=== PATIENT | female | born 1980 | race Two or more races ===

== ENCOUNTER 2022-11-01 10:15 | Outpatient (REF) | payer MEDICAID, SELFPAY ==
--- NOTE | 2022-11-01 10:23 | EMG_ITS ---
Please see scanned EMG / Nerve Conduction Report. MTDD
== END 2022-11-01 10:16 | disposition home or self-care (01) ==
LOC: HO.NEURO 10:15
PROVIDERS: PCP Registered Nurse; Visit Provider Registered Nurse
DX: R20.2 Paresthesia of skin (principal)
CPT/HCPCS: 95885; 95913

== ENCOUNTER 2023-03-19 12:13 | Outpatient (REF) | payer MEDICAID, SELFPAY ==
[2023-03-19 13:30] LABS: MANUAL DIFF FLAG NO
[2023-03-19 13:45] LABS: Appearance Urine Clear; Color Urine Yellow; Glucose Urine UA Negative (Negative); Leukocyte Esterase Urine Negative (Negative); Nitrite Urine Negative (Negative); PH 7.5 (5.0-9.0); Urine Blood Negative (Negative); Urine Ketones Negative (Negative); Urine Protein Negative (Neg-Trace)
[2023-03-19 13:50] LABS: Bacteria Urine None Seen (None Seen); Hyaline Casts Urine 0-2 /LPF (0-2); RBC Urine 0-2 /HPF (0-2); Squamous Epithelial Cell Urine 0-2 /HPF (0-2); WBC Urine 0-5 /HPF (0-5)
[2023-03-19 13:53] LABS: Basophils Percent Auto 0.4 % (0-2); Eosinophils Absolute Auto 0.1 X10*3/uL (0.0-0.4); Eosinophils Percent Auto 1.3 % (0-4); Hematocrit 45.3 % (37.0-47.0); Hemoglobin 14.6 g/dl (12.0-16.0); Imm Gran Abs Auto 0.01 X10*3/uL (0.00-0.03); Imm Gran Pct Auto 0.2 % (0.0-0.4); Lymphocytes Absolute Auto 1.9 X10*3/uL (1.2-4.9); Lymphocytes Percent Auto 33.4 % (20-40); Mean Corpuscular HGB Conc 32.2 g/dl (31.0-35.0); Mean Corpuscular Hemoglobin 29.7 pg (27.0-33.0); Mean Corpuscular Volume 92.3 fL (80.0-98.0); Mean Platelet Volume 9.8 fL (9.4-12.3); Monocytes Absolute Auto 0.5 X10*3/uL (0.1-1.2); Monocytes Percent Auto 8.1 % (2-11); Neutrophils Absolute Auto 3.1 x10*3/uL (2.0-8.3); Neutrophils Percent Auto 56.6 % (45-73); Platelet Count 220 X10*3/uL (160-400); Red Blood Count 4.91 X10*6/uL (4.20-5.50); White Blood Count 5.5 X10*3/uL (4.8-10.8)
[2023-03-19 14:50] LABS: Alanine Aminotransferase 19 U/L (0-31); Albumin Level 4.2 g/dL (3.5-5.0); Alkaline Phosphatase 42 U/L (39-117); Anion Gap 13 (12-20); Aspartate Amino Transferase 15 U/L (5-31); Bilirubin Total 0.4 mg/dL (0.0-1.0); Blood Urea Nitrogen 13 mg/dL (9-16); Calcium 9.4 mg/dL (8.4-10.2); Carbon Dioxide 26 mmol/L (22-29); Chloride 106 mmol/L (96-108); Estimated Glomerular Filt Rate > 60; Glucose Random 75 mg/dL (60-115); Potassium 4.5 mmol/L (3.3-5.1); Sodium 140 mmol/L (135-145); Total Protein 7.5 g/dL (6.5-8.0)
[2023-03-21 23:53] LABS: TS Negative Control Passed; TS Panel A 0; TS Panel B 0; TS Positive Control Passed; TSpotTB Negative (Negative)
[2023-03-23 16:08] LABS: Aldosterone/Renin Ratio 77.8 Ratio (0.9-28.9); Plasma Renin Activity 0.09 ng/mL/h (0.25-5.82)
== END 2023-03-19 12:14 | disposition home or self-care (01) ==
LOC: HO.HHCL 12:13
PROVIDERS: Visit Provider Registered Nurse
DX: Z00.00 Encounter for general adult medical examination without abnormal findings (principal); I15.9 Secondary hypertension, unspecified
CPT/HCPCS: 36415; 80053; 81001; 82088; 85025; 86481

== ENCOUNTER 2023-04-25 09:23 | Outpatient (REF) | payer MEDICAID, SELFPAY ==
[2023-05-02 16:28] LABS: Aldosterone/Renin Ratio 83.3 Ratio (0.9-28.9); Plasma Renin Activity 0.06 ng/mL/h (0.25-5.82)
== END 2023-04-25 09:24 | disposition home or self-care (01) ==
LOC: HO.HHCL 09:23
PROVIDERS: Visit Provider Registered Nurse
DX: I10 Essential (primary) hypertension (principal)
CPT/HCPCS: 36415; 82088

== ENCOUNTER 2024-09-03 11:46 | Outpatient (REF) | payer MEDICAID, SELFPAY ==
[2024-09-03 14:21] LABS: Appearance Urine Clear; Color Urine Yellow; Glucose Urine UA Negative (Negative); Leukocyte Esterase Urine Negative (Negative); Nitrite Urine Negative (Negative); PH 6.5 (5.0-9.0); Urine Blood Negative (Negative); Urine Ketones Negative (Negative); Urine Protein Negative (Neg-Trace)
[2024-09-03 14:24] LABS: Bacteria Urine 1+ (None Seen); Hyaline Casts Urine 0-2 /LPF (0-2); RBC Urine 0-2 /HPF (0-2); WBC Urine 0-5 /HPF (0-5)
[2024-09-03 14:40] LABS: Alanine Aminotransferase 27 U/L (0-31); Albumin Level 4.5 g/dL (3.5-5.0); Alkaline Phosphatase 45 U/L (39-117); Anion Gap 9 (12-20); Aspartate Amino Transferase 24 U/L (5-31); Bilirubin Total 0.8 mg/dL (0.0-1.0); Blood Urea Nitrogen 13 mg/dL (9-16); Calcium 8.9 mg/dL (8.4-10.2); Carbon Dioxide 25 mmol/L (22-29); Chloride 110 mmol/L (96-108); Cholesterol 157 mg/dL (<200); Estimated Glomerular Filt Rate > 60; Glucose Random 86 mg/dL (60-115); HDL Cholesterol 52 mg/dL (>40); LDL Cholesterol Calculated 97 mg/dL (<100); Potassium 3.8 mmol/L (3.3-5.1); Sodium 140 mmol/L (135-145); Total Protein 7.7 g/dL (6.5-8.0); Triglycerides 43 mg/dL (<150)
[2024-09-04 04:17] LABS: Syphilis Screen Nonreactive (Nonreactive)
[2024-09-04 04:19] LABS: HIV AB/AG Nonreactive (Nonreactive); HIV Num 1 0.06 S/CO (0.00-0.99)
[2024-09-06 15:49] LABS: TS Negative Control Passed; TS Panel A 0; TS Panel B 0; TS Positive Control Passed; TSpotTB Negative (Negative)
== END 2024-09-03 11:47 | disposition home or self-care (01) ==
LOC: HO.CHCLDS 11:46
PROVIDERS: Visit Provider Registered Nurse
DX: Z00.00 Encounter for general adult medical examination without abnormal findings (principal); I10 Essential (primary) hypertension
CPT/HCPCS: 36415; 80053; 80061; 81001; 86481; 86780; 87389

== ENCOUNTER 2024-09-11 17:26 | Outpatient (REF) | payer MEDICAID, SELFPAY ==
[2024-09-12 14:40] LABS: CT PCR NOT DETECTED (Not Detect.); NG PCR NOT DETECTED (Not Detect.)
== END 2024-09-11 17:27 | disposition home or self-care (01) ==
LOC: HO.HHCLNP 17:26
PROVIDERS: Visit Provider Advanced Practice Midwife
DX: Z11.3 Encounter for screening for infections with a predominantly sexual mode of transmission (principal)
CPT/HCPCS: 87491; 87591

== ENCOUNTER 2024-09-12 16:18 | Outpatient (REF) | payer MEDICAID, SELFPAY ==
--- OUTSIDE RECORDS SUMMARY | 2024-09-12 16:43 | XMS_ITS | Encounter Summary ---
Author Organization [email or web address] Address [address] [facility] [address] [place] [address] Care Team Providers Care Patcher Wood Welder Name Role Phone Nadine Philip ANGEL Primary Care Provider [phone] Reason for Referral * Imaging (Routine) - Authorized Specialty Diagnoses / Procedures Referred By Mohan villarreal Referred To Contact Radiology Diagnoses Encounter for screening mammogram for breast cancer Procedures BI Mammogram Screening Tomosynthesis Bilateral Eliana Mejias FNP [address] [place] [address] Phone: tel: fax: [address] Phone: tel: fax: Referral ID Status Reason Start Date Expiration Date V isits Requested Visits Authorized [id number] Authorized 09/03/2024 09/03/2025 1 1 * Consultation (Urgent) - Authorized Specialty Diagnoses / Procedures Referred By Mohan villarreal Referred To Contact Dentist / Dentistry Diagnoses Poor dentition requiring referral to dentistry Eliana Mejias FNP [address] [place] [address] Phone: tel: fax: [facility] [address] [place] [address] Phone: tel: fax: Referral ID Status Reason Start Date Expiration Date Visits Requested Visits Authorized [id number] Authorized Consult and Treat 09/03/2024 09/03/2025 1 1 * Consultation (Routine) - Authorized Specialty Diagnoses / Procedures Referred By Contac t Referred To Contact Optometry Diagnoses Essential hypertension Eye exam, routine Eliana Mejias FNP [address] [place] [address] Phone: tel: fax: [facility] [address] [place] [address] Phone: tel:[phone] fax: Referral ID Status Reason Start Date Expiration Date Visits Requested Visits Authorized [id number] Authorized Specialty Services Required 09/05/2024 09/05/2025 6 6 Encounter Details Date Type Department Care Team (Late st Contact Info) Description 09/03/2024 10:00 AM EST Office Visit [facility] [address] [place] [address] Eliana Mejias FNP [address] [place] [address] Encounter for adult wellness visit (Primary Dx); Essential hypertension; 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); Poor dentition requiring referral to dentistry; Eye exam, routine; Encounter for immunization; Encounter for screening mammogram for breast cancer Social History Tobacco Use Types Packs/Day Years Used Date Smoking Tobacco: Former Cigarettes Q uit: 1997 Passive Smoke Exposure: Never Smokeless Tobacco: Never Alcohol Use Standard Drinks/Week Comments Not Currently 0 (1 standard drink = 0.6 oz pur e alcohol) Depression Answer Date Recorded Patient Health Questionnaire-9 Score 0 09/03/2024 Patient Health Questionnaire-9 Score 0 09/03/2024 Last PHQ-9: Questionnaire Data Not on file 0 09/03/2024 Housing Stability Answer Date Recorded What is your housing situation today? I have allyson cabrera 09/03/[address] you li ve. Do you have problems with any of the following? None of the above 09/03/2024 Food Insecurity Answer Date Recorded Within the past 12 months, y ou worried that your food would run out before you got money to buy more: Never True 09/03/2024 Within the past 12 months,th e food you bought just didn't last and you didn't have enough money to get more: Never True Transportation Answer Date Recorded In the past 12 months, has l ack of transportation kept you from medical appts, meetings, work or from getting things needed for daily living? No 09/03/2024 Utilities Answer Date Recorded In the past 12 months, has t he electric, gas, oil or water company threatened to shut off services in your home? No 09/03/2024 Depression Answer Date Recorded Patient Health Questionnaire-2 Score 0 09/03/2024 Internet Access Answer Date Recorded Internet Access Q1 Yes 09/03/2024 Internet Access Q2 Not on file 09/03/2024 Comments No Sex and Gender Information Value Date Recorded Sex Assigned at Female 06/19/2022 10:40 AM EDT Legal Sex Female 10:40 AM EDT Gender Identity Female 06/19/2022 10:40 AM EDT Sexual Orientation Choose not to disclose 2021 10:40 AM EDT documented as of this encounter Last Filed Vital Signs Vital Sign Reading Time Taken Comments Blood Pressure 180/110 09/03/2024 10:51 AM EST Pulse 88 09/03/2024 10:11 AM EST Temperature 37.1 ??C (98.8 ??F) 09/03/2024 10:[address] Respiratory Rate 20 09/03/2024 10:11 AM EST Oxygen Saturation 98% 09/03/2024 10:11 AM EST Inhaled Oxygen Concentration - - Weight 67.3 kg (148 lb 6.4 oz) 09/03/2024 10:11 AM EST Height 157.5 cm (5' 2 ) 09/03/2024 10:11 AM EST Body Mass Index 27.14 09/03/2024 10:11 AM EST documented in this encounter Progress Notes * [facility], [facility] - 09/03/2024 10:00 AM EST SUBJECTIVE: Adrianna Agrawal is a 43 y.o. year old female who presents for routine physical exam. Denies recent illness, injury, or hospitalization. Acute Concerns: Dental care-referral; eye care referral Interim Updates: HTN-previously rx'd olmesartan. Not taking any medication. Hx of preeclampsia/gestational HTN. Significant family hx of heart disease-Dad with ID age 48. Has BP kit at home; not checking. 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 No family history on file. Review of Systems Constitutional: Negative for chills, fatigue, fever and unexpected weight change. HENT: Negative for dental problem, ear pain, hearing loss and sore throat. Eyes: Negative for pain and visual disturbance. Respiratory: Negative for cough and shortness of breath. Cardiovascular: Negative for chest pain. Gastrointestinal: Negative. Negative for abdominal pain and blood in stool. Endocrine: Negative. Genitourinary: Negative. Negative for dysuria. Musculoskeletal: Negative. Skin: Negative. Allergic/Immunologic: Negative for immunocompromised state. Neurological: Negative for dizziness, weakness and headaches. Psychiatric/Behavioral: Negative. OBJECTIVE: Vitals: 09/03/24 1011 09/03/24 1051 BP: (!) 190/120 (!) 180/110 BP Location: Right arm Patient Position: Sitting BP Cuff Size: Large adult Pulse: 88 Resp: 20 Temp: 98.8 ??F (37.1 ??C) TempSrc: Oral SpO2: 98% Weight: 148 lb 6.4 oz (67.3 kg) Height: 5' 2 (1.575 m) Physical Exam Constitutional: General: She is not in acute distress. Appearance: Normal appearance. HENT: Head: Normocephalic and atraumatic. Right Ear: Tympanic membrane, ear canal and external ear normal. Left Ear: Tympanic membrane, ear canal and external ear normal. Nose: Nose normal. Mouth/Throat: Mouth: Mucous membranes are moist. Eyes: Extraocular Movements: Extraocular movements intact. Conjunctiva/sclera: Conjunctivae normal. Pupils: Pupils are equal, round, and reactive to light. Cardiovascular: Rate and Rhythm: Normal rate and regular rhythm. Heart sounds: Normal heart sounds. Pulmonary: Effort: Pulmonary effort is normal. Breath sounds: Normal breath sounds. Abdominal: Palpations: Abdomen is soft. Musculoskeletal: General: Normal range of motion. Cervical back: Normal range of motion. Skin: General: Skin is warm and dry. Neurological: General: No focal deficit present. Mental Status: She is alert and oriented to person, place, and time. Psychiatric: Mood and Affect: Mood normal. Behavior: Behavior normal. ASSESSMENT/PLAN Significant BP elevation in office. Pt asx with normal sinus rhythm on EKG. Reports long hx of similarly elevated readings. START amlodipine 5mg once daily-->increase to 10mg if BP remains >140/90. Pt instructed to take amlodipine immediately and recheck home BP within 1 hour. Strict ED precautions were advised Start daily home BP monitoring 2 week follow up RN BP check Patient verbalizes understanding and agrees to plan Routine Health Maintenance - Cardiopulmonary exam WNL - Encouraged regular aerobic exercise with initial goal of 30 minute walk 3x/week gradually increasing to 150 min/week of moderate intensity exercise - Encouraged balanced diet with a variety of fruits, vegetables, and lean meats. Recommended to decrease soda and sugary beverage consumption. Optometry: Overdue for routine eye exam-->referral place Dental: Overdue-->concern for tooth infection. STAT dental referral placed Adult IZ: Covid: Accepts Influenza: Accepts Immunization History Administered Date(s) Administered Influenza Injectable Quadrivalant Preservative Free IIV4 MDCK 08/17/2017 Influenza injectable quadrivalent preservative free 06/30/2022 Influenza, IIV3, injectable 06/13/2021 PPD Test 08/17/2016, 08/15/2017, 04/08/2019 Pfizer Covid-19 Vaccine 12+ Bivalent 03/19/2023 Tdap 07/04/2021 Mental health screening with validated assessment tool : Negative Screenings Breast cancer screening: No prior mammogram; neg family hx. Mammogram ordered Cervical cancer screenin UTD NIL HPV neg w/ CNM Daron Colorectal cancer screening: Routine age 45neg family hx Bone mineral density: Routine age 65. Lung CA: N/A Reproductive LMP: Amenorrheic d/t IUD Current control: Satisfied with method Desires within 12 months: No Menopause: Denies vaginal bleeding/spotting Accepts routine STI screening 1. Encounter for adult wellness visit (Primary) - T-SPOT??.TB; Future - HIV-1/2 Antigen and Antibodies, Fourth Generation, with Reflexes; Future - T-SPOT??.TB - HIV-1/2 Antigen and Antibodies, Fourth Generation, with Reflexes - Syphilis Screen; Future - Syphilis Screen 2. Essential hypertension - amLODIPine (Norvasc) 5 MG tablet; Take 1 tablet (5 mg) by mouth Once per day. If tolerating well and BP remains >140/90 INCREASE to 2 tablets (10mg) daily Dispense: 30 tablet; Refill: 11 - Comprehensive Metabolic Panel; Future - Urinalysis Complete; Future - Aldosterone/Plasma Renin Activity Ratio, LC/MS/MS; Future - Lipid Panel, Standard; Future - Comprehensive Metabolic Panel - Urinalysis Complete - Aldosterone/Plasma Renin Activity Ratio, LC/MS/MS - Lipid Panel, Standard - Referral to Optometry; Future - Referral to Optometry - ECG 12 lead 3. 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 Aldosterone WNL; suppressed renin activity. Unknown if patient was taking any hypertensive medications at time of prior blood work which could have suppressed renin and falsely elevated ratio. Normal aldosterone concentration lowers clinical suspicion for true hyperaldosteronism. Will repeat morning bloodwork and follow up pending results. Aldosterone Date Value Ref Range Status 04/25/2023 5 see note ng/dL Final Comment: Unable to flag abnormal result(s), please refer to reference range(s) below:Adult Reference Ranges for Aldosterone, LC/MS/MS: Upright 8:00 - 10:00 am < or = 28 ng/dL Upright 4:00 - 6:00 pm < or= 21 ng/dL Supine 8:00 - 10:00 am 3 - 16 ng/dLTHIS TEST WAS PERFORMED AT:[facility]/[id number] [place] [address]HMZFEHZNOE BREWER MD,PHD 03/19/2023 7 see note ng/dL Final Comment: Unable to flag abnormal result(s), please refer to reference range(s) below:Adult Reference Ranges for Aldosterone, LC/MS/MS: Upright 8:00 - 10:00 am < or = 28 ng/dL Upright 4:00 - 6:00 pm < or = 21 ng/dL Supine 8:00 - 10:00 am 3 - 16 ng/dLTHIS TEST WAS PERFORMED AT:[facility]/[id number] [place] [address]NEGKWEZNOE BREWER MD,PHD Plasma Renin Activity Date Value Ref Range Status 04/25/2023 0.06 (A) 0.25 - 5.82 ng/mL/h Final 03/19/2023 0.09 (A) 0.25 - 5.82 ng/mL/h Final Aldosterone/Renin Ratio Date Value Ref Range Status 04/25/2023 83.3 (A) 0.9 - 28.9 Ratio Final Comment: This test was developed and its analytical performancecharacteristics have been determined by [place]. It hasnot been cleared or approved by the [place] Food andDrugAdministration. This assay has been validated pursuantto the CLIA regulations and is used for clinicalpurposes.THIS TEST WAS PERFORMED AT:[facility]/[id number] [place] [address]SZUXNXDNOE BREWER MD,PHD 03/19/2023 77.8 (A) 0.9 - 28.9 Ratio Final Comment: This test was developed and its analytical performancecharacteristics have been determined by [facility] [place]. It hasnot been cleared or approved by the U.[place]. Food andDrugAdministration. This assay has been validated pursuantto the CLIA regulations and is used for clinicalpurposes.THIS TEST WAS PERFORMED AT:[id number] [place] [address]ZXILGYINOE BREWER MD,PHD 4. Poor dentition requiring referral to dentistry - Referral to [facility] Dental; Future 5. Eye exam, routine - Referral to Optometry; Future - Referral to Optometry 6. Encounter for immunization - FLU VACCINE TRIVALENT (Fluarix) 6 mo + - COVID-19 VACCINE (Pfizer) [id number] 12 yrs + 7. Encounter for screening mammogram for breast cancer - BI Mammogram Screening Tomosynthesis Bilateral; Future - BI Mammogram Screening Tomosynthesis Bilateral Follow Up: 2 BP check 2 weeks; 1 month with PCP ADDENDUM: I attempted to call patient at 5pm to confirm that she took amlodipine and that her BP responded appropriately. No answer. LVM requesting call back. Current Outpatient Medications on File Prior to Visit Medication Sig Dispense Refill acetaminophen (Tylenol) 325 MG tablet Take 650 mg by mouth. albuterol 108 (90 Base) MCG/ACT inhaler Inhale 2 puffs every 6 (six) hours if needed for wheezing. 18 g 1 Blood Pressure kit Use to check BP daily and when symptomatic 1 kit 0 cholecalciferol (Vitamin D-3) 10 MCG (400 UNIT) tablet Take 2 tablets by oral route every day Echinacea 125 MG tablet as needed guaiFENesin (Mucinex) 600 MG 12 hr tablet Take 1 tablet (600 mg) by mouth 2 times daily. Do not crush, chew, or split. 60 tablet 1 ibuprofen 800 MG tablet Take 800 mg by mouth. Multiple Vitamin (Multi-Vitamin) tablet take 1 tablet by oral route every day with food olmesartan (BENIcar) 20 MG tablet Take 1 tablet (20 mg) by mouth Once daily. 90 tablet 1 No current facility-administered medications on file prior to visit. S documented in this encounter Plan of Treatment Scheduled Orders Name Type Priority Associated Diagnoses Orde r Schedule Aldosterone/Plasma Renin Activity Ratio, LC/MS/MS Lab Routine Essential hypertension Expected: 09/04/2024, Expires: 09/03/2025 BI Mammogram Screening Tomosynthesis Bilateral Imaging Routine Encounter for screening mammogram for breast cancer Expected: 09/03/2024, Expires: 11/01/2025 Scheduled Referrals Name Type Priority Associated Diagnoses Orde r Schedule Referral to Optometry Outpatient Referral Routine Essential hypertension Eye exam, routine Expected: 09/03/2024 (Approximate), Expires: 09/03/2025 Referral to [facility] Dental Outpatient Referral Urgent Poor dentition requiring referral to dentistry Expected: 09/03/2024 (Approximate), Expires: 09/03/2025 documented as of this encounter Procedures Procedure Name Priority Date/Time Associated Diagnosis Comments ECG 12-LEAD Routine 09/03/2024 5:09 PM EST Essential hypertension URINALYSIS, COMPLETE Routine 09/03/2024 11:50 AM EST Essential hypertension SYPHILIS SCREEN Routine 09/03/2024 11:48 AM EST Encounter for adult wellness visit T-SPOT(R).TB Routine 09/03/2024 11:48 AM EST Encounter for adult wellness visit HIV 1/2 ANTIGEN/ANTIBODY, FOURTH GENERATION W/RFL Routine 09/03/2024 11:48 AM EST Encounter for adult wellness visit LIPID PANEL, STANDARD Routine 09/03/2024 11:48 AM EST Essential hypertension COMPREHENSIVE METABOLIC PANEL Routine 09/03/2024 11:48 AM EST Essential hypertension documented in this encounter Results * ECG 12 lead (09/03/2024 5:09 PM EST) [facility] ElianaANGEL - 09/03/2024 5:09 PM EST NSR. See scanned report [facility] ECG ORDERABLES Final Result * Urinalysis Complete (09/03/2024 11:50 AM EST) Color Urine Yellow [facility] Appearance Urine Clear [facility] PH 6.5 5.0 - 9.0 [facility] Glucose Urine UA Negative Negative mg/dL [facility] Urine Blood Negative Negative [facility] Specific [place] - Urine 1.020 1.005 - 1.025 [facility] Urine Protein Negative Neg-Trace mg/dL [facility] Urine Ketones Negative Negative mg/dL [facility] Nitrite Urine Negative Negative [facility] Leukocyte Esterase Urine Negative Negative [facility] RBC Urine 0-2 0 - 2 /HPF [facility] Urine WBC 0-5 0 - 5 /HPF [facility] Urine Squamous Epithelial Cell 6-10 0 - 2 /HPF [facility] Urine Bacteria 1+ None Seen [facility] Hyaline Casts, Urine 0-2 0 - 2 /LPF [facility] Urine (Urine, Random) 09/03/2024 11:50 AM EST 09/03/2024 2:15 PM EST [facility] LAB URINE ORDERABLES Final Re sult Performing Organization Address [facility]/ZIP Co de Phone Number [facility] [address] [place] [address] [phone] * Syphilis Screen (09/03/2024 11:48 AM EST) Syphilis Screen Nonreactive Nonreactive [facility] Blood 09/03/2024 11:4 8 AM EST 09/03/2024 2:20 PM EST [facility] LAB BLOOD ORDERABLES Final Re sult Performing Organization Address City/[facility] Co de Phone Number [facility] [address] [place] [address] [phone] * HIV-1/2 Antigen and Antibodies, Fourth Generation, with Reflexes (09/03/2024 11:48 AM EST) HIV AB/AG Nonreactive Nonreactive [facility] Comment:HIV-1 p24 Ag and/or HIV-1/HIV-2 Ab not detected.A test result that is nonreactive does not exclude thepossibility of exposure to or infection with HIV-1 and/orHIV-2. Nonreactive results in this assay for individualswith prior exposure to HIV-1 and/or HIV-2 may be due toantigen and antibody levels that are below the limit ofdetection of this assay.The [employer] HIV Ag/Ab Combo assay result andsupplemental assay results should be interpreted inconjunction with the patient's clinical presentation,history and other laboratory results. If the results areinconsistent with clinical evidence, additional testing issuggested to confirm the result. Blood Venous blood specimen / Unknown 09/03/2024 11:48 AM EST 09/03/2024 2:20 PM EST [facility] LAB BLOOD ORDERABLES Final Re sult [facility] [address] [place] [address] [phone] * T-SPOT??.TB (09/03/2024 11:48 AM EST) [facility] T Spot TB Negative Negative [facility] Comment:A negative test resu lt does not exclude the possibilityof exposure to or infection with Mycobacteriumtuberculosis (M. tuberculosis). Patients with recentexposure to TB infected individuals exhibiting anegative T-SPOT.TB result should be considered forretesting within 6 weeks or if other relevant clinicalsymptoms indicate. Results from T-SPOT.TB testing mustbe used in conjunction with each individual'sepidemiological history, current medical status,and results of other diagnostic evaluations.The T-SPOT.TB test is qualitative and results arereported as positive, borderline, or negative, giventhat the test controls perform as expected. In linewith the Centers for Disease Control and Prevention's2010 recommendation to report quantitative measurementsalongside the qualitative result, the laboratoryprovides spot counts for informational purposes only.The T-SPOT.TB test should not be interpreted as aquantitative test. TS PANEL A 0 [facility] TS PANEL B 0 [facility] Negative Control Passed [facility] Positive Control Passed [facility] Comment:For additional infor baljit, please refer [email or web address]/faq/PWE720(This link is being provided for informational/educational purposes only.)THIS TEST WAS PERFORMED AT:[id number] [place] [address]DBBBXPINOE BREWER MD,PHD 09/03/2024 11:4 8 AM EST 09/03/2024 2:20 PM EST [facility] LAB BLOOD ORDERABLES Final Re sult Performing Organization Address [facility] Co de Phone Number [facility] [address] [place] [address] [phone] * Lipid Panel, Standard (09/03/2024 11:48 AM EST) Triglycerides 43 <150 mg/dL [facility] Comment:Desirable Triglyceri de: less than 150 mg/dLBorderline High Triglyceride 150-199 mg/dLHigh Triglyceride: 200-499 mg/dLVery High Triglyceride: greater than or equal to 5OO mg/dL Cholesterol 157 <200 mg/dL [facility] Comment:Desirable Cholestero l: less than 200 mg/dLBorderline High Cholesterol: 200-239 mg/dLHigh Cholesterol: greater than 239 mg/dL LDL Cholesterol Calculated 97 <100 mg/dL [facility] Comment:Desirable LDL: less than 100 mg/dLNear Optimal/Above Optimal LDL: 110- 129 mg/dLBorderline High LDL: 130-159 mg/dLHigh LDL: 160-189 mg/dLVery High LDL: greater than or equal to 190 mg/dL HDL Cholesterol 52 >40 mg/dL [facility] Comment:Desirable HDL: great er than 40 mg/dL Note: This HDL assay may give artificially low results in patients with liver disease. Blood Venous blood specimen / Unknown 09/03/2024 11:48 AM EST 09/03/2024 2:20 PM EST [facility] LAB BLOOD ORDERABLES Final Re sult Performing Organization Address [facility]/ZIP Co de Phone Number [facility] [address] [place] [address] [phone] * (ABNORMAL) Comprehensive Metabolic Panel (09/03/2024 11:48 AM EST) Sodium 140 135 - 145 mmol/L [facility] Potassium 3.8 3.3 - 5.1 mmol/L [facility] Chloride 110(H) 96 - 108 mmol/L [facility] Carbon Dioxide 25 22 - 29 mmol/L [facility] Anion Gap 9(L) 12 - 20 [facility] Urea Nitrogen (BUN) 13 9 - 16 mg/dL [facility] Creatinine, Serum 0.89 0.5 - 1.4 mg/dL [facility] Estimated Glomerular Filt Rate >60 [facility] Comment:Chronic Kidney Disea se: Estimated GFR < 60 mL/min/1.80i4Kdksdm Kidney Disease: Estimated GFR < 15 mL/min/1.73m2 Glucose 86 60 - 115 mg/dL [facility] Calcium 8.9 8.4 - 10.2 mg/dL [facility] Bilirubin, Total 0.8 0.0 - 1.0 mg/dL [facility] Aspartate Amino Transferase 24 5 - 31 U/L [facility] Alanine Aminotransferase 27 0 - 31 U/L [facility] Total Protein 7.7 6.5 - 8.0 g/dL [facility] Albumin Level 4.5 3.5 - 5.0 g/dL [facility] Alkaline Phosphatase 45 39 - 117 U/L [facility] Blood Venous blood specimen / Unknown 09/03/2024 11:48 AM EST 09/03/2024 2:20 PM EST [facility] LAB BLOOD ORDERABLES Final Re sult [facility] [address] [place] [address] [phone] documented in this encounter Visit Diagnoses Diagnosis Encounter for adult wellness visit- Primary Essential hypertension Unspecified essential hypertension 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
--- OUTSIDE RECORDS SUMMARY | 2024-09-12 16:43 | XMS_ITS | Encounter Summary ---
Author Organization [employer] Address [address] [facility] [address] [place] [address] Care Team Providers Care Certified Pesticide Applicator Name Role Phone Nadine Philip Primary Care Provider [phone] Reason for Visit * Reason Onset Date Comments fyi 09/03/2024 Report BP reading 09/03/2024 Encounter Details Date Type Department Care Team ([facility] st Contact Info) Description 09/03/2024 Telephone [facility] [address] [place] [address] Nadine Philip FNP [address] [place], [place] [id number] fyi ; Report BP reading Social History Tobacco Use Types Packs/Day Years [...] AM EDT documented as of this encounter Miscellaneous Notes * Telephone Encounter - Sangeeta Og RN - 09/04/2024 9:41 AM EST BP's noted. TC to patient regarding BP and how she is feeling today. No answer. * Telephone Encounter - Alexis Stoner - 09/03/2024 4:27 PM EST TC from pt wanting to report B/P at resting point Most recent 149/111 139/100 105/77 documented in this encounter Plan of Treatment Not on file documented as of this encounter Visit Diagnoses Not on filedocumented in this encounter Additional Health Concerns Assessment Noted Time PHQ-9 Depression Total Score: 0 09/03/19 25 11:30 AM EST documented as of this encounter Care Teams Certified Pesticide Applicator Relationship Specialty Start Date End Date Nadine Philip FNP [address] [place] [address] PCP - General Family Medicine 05/17/22 documented as of this encounter
--- OUTSIDE RECORDS SUMMARY | 2024-09-12 16:43 | XMS_ITS | Encounter Summary ---
Author Organization [employer] Address [address] [facility] [address] [place] [address] Care Team Providers Care Brick [employer] Mason Name Role Phone Nadine Philip [employer] Primary Care Provider [phone] Encounter Details Date Type Department Care Team (Latest Contact Info) Description 09/03/2024 Travel Social History Tobacco Use Types Packs/Day Years [...] AM EDT documented as of this encounter Plan of Treatment Not on file documented as of this encounter Visit Diagnoses Not on filedocumented in this encounter Additional Health Concerns Assessment Noted Time PHQ-9 Depression Total Score: 0 09/03/19 25 11:30 AM EST documented as of this encounter Care Teams B[employer] Mason Relationship Specialty Start Date End Date Nadine Philip FNP [address] [place] [phone] PCP - General Family Medicine 05/17/22 documented as of this encounter
--- OUTSIDE RECORDS SUMMARY | 2024-09-12 16:43 | XMS_ITS | Clinical Summary ---
Author Organization [facility] Address [address] [place] [address] Care Team Providers Care Sprinkler Installer Name Role Phone Nadine Philip [facility] Primary Care Provider [phone] Allergies No known active allergies Medications acetaminophen (Tylenol) 325 MG tablet Take 650 mg by mouth. 2 Active cholecalciferol (Vitamin D-3) 10 MCG (400 UNIT) tablet Take 2 tablets by oral route every day 2 Active Echinacea 125 MG tablet as needed Active ibuprofen 800 MG tablet Take 800 mg by mouth. 2 Active Multiple Vitamin (Multi-Vitamin) tablet take 1 tablet by oral route every day with food 2 Active Blood Pressure kit Use to check BP daily and when symptomatic 1 kit 3 Active olmesartan (BENIcar) 20 MG tablet Take 1 tablet (20 mg) by mouth Once daily. 90 tablet 1 3 Active guaiFENesin (Mucinex) 600 MG 12 hr tabletIndication s:Bronchitis Take 1 tablet (600 mg) by mouth 2 times daily. Do not crush, chew, or split. 60 tablet 1 3 Active albuterol 108 (90 Base) MCG/ACT inhalerIndicatio ns:Bronchitis Inhale 2 puffs every 6 (six) hours if needed for wheezing. 18 g 1 3 Active amLODIPine (Norvasc) 5 MG tabletIndication s:Essential hypertension Take 1 tablet (5 mg) by mouth Once per day. If tolerating well and BP remains >140/90 INCREASE to 2 tablets (10mg) daily 30 tablet 11 5 09/03/19 26 Active norethindrone (Ortho Micronor) 0.35 MG tablet Take 1 tablet (0.35 mg) by mouth Once per day. 28 tablet 12 01/23/09/10/19 26 Active metroNIDAZOLE (Flagyl) 500 MG tablet Take 1 tablet (500 mg) by mouth 2 times daily for 7 days. 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 BP goal < 140/90 mmHg ?? Difficult to assess home readings, although initial and repeat elevated in office ?? Denies any chest pain, HERNANDEZ, blurry vision, SOB, difficulty breathing, N/V/D ?? Encouraged to monitor home BP readings and bring to follow up appt ?? ED precautions ?? Pt expresses interest in lifestyle interventions over additional pharmacotherapy at this time ?? Continues olmesartan 20mg daily Given the abrupt onset of elevated BP readings, consider further workup for secondary HTN: ?? DDx: renal artery stenosis, kidney disease, PITER, primary aldosteronism, pheochromocytoma, [place]'s syndrome, coarctation of aorta, herbal supplements, primary HTN, other -Start eval with the following blood work: CMP, CBC, felipe-renin, UA -Consider referral to Nephrology Assessment & Plan (05/22/2023 6:14 PM EDT): BP elevated today 156/103 Manual recheck 158/98 Asymptomatic Took Olmesartan today Continue olmesartan daily Pt will call Endo for new appt She will go downstairs for repeat labs prior to 10 am for most accurate level Continue to monitor BP at home F/u 3 months or sooner PRN with PCP Assessment & Plan (03/27/2023 4:52 PM EDT): ?? BP goal < 140/90 mmHg ?? Difficult to assess home readings, although initial and repeat elevated in office ?? Denies any chest pain, HERNANDEZ, blurry vision, SOB, difficulty breathing, N/V/D ?? Encouraged to monitor home BP readings and bring to follow up appt ?? ED precautions ?? Pt expresses interest in lifestyle interventions over additional pharmacotherapy at this time ?? Continues olmesartan 20mg daily Given the abrupt onset of elevated BP readings, consider further workup for secondary HTN: ?? DDx: renal artery stenosis, kidney disease, PITER, primary aldosteronism, pheochromocytoma, Hardik's syndrome, coarctation of aorta, herbal supplements, primary HTN, other -Start eval with the following blood work: CMP, CBC, felipe-renin, UA -Consider referral to Nephrology Assessment & Plan (02/16/2023 5:23 PM EDT): ?? Mild improvement s/p initiation of olmesartan ?? INCREASE to olmesartan 20mg daily ?? Denies any chest pain, HERNANDEZ, blurry vision, SOB, difficulty breathing, N/V/D ?? Continue monitoring home BP readings and bring to follow up appt ?? ED precautions Given the abrupt onset of elevated BP readings, consider further workup for secondary HTN: ?? DDx: renal artery stenosis, kidney disease, PITER, primary aldosteronism, pheochromocytoma, [place]'s syndrome, coarctation of aorta, herbal supplements, primary HTN, other -Start eval with the following blood work: CMP, CBC, felipe-renin, UA -Follow up in 2-3 weeks, sooner as needed Assessment & Plan (01/07/2023 7:30 PM EDT): ?? Initial BP 170s/100s mmHg, repeat 148/102 mmHg ?? Denies any chest pain, HERNANDEZ, blurry vision, SOB, difficulty breathing, N/V/D ?? Asymptomatic ?? BP monitor and home log provided ?? Follow up in 2 weeks for nurse visit to re-check BP and home readings ?? ED precautions Routine health maintenance 01/03/2023 Anxiety 08/30/2022 Overview (05/22/2023): Per pt anxiety is affecting her ability to leave her home and go to [facility] Assessment & Plan (05/22/2023 6:22 PM EDT): Educated pt that letter requests are managed by Forms Team Will Recommend she go goes to basement, medical records, and request approval of washer and dryer by apartment management F/u with psych provider Elevated liver function tests 08/30/2022 Gestational diabetes 08/30/2022 Paresthesia 05/17/2022 Encounters Date Type Department Care Team Description 09/11/2024 11:00 AM EST Office Visit [facility] [address] [place] [address] Feli Neri CNM Encounter for IUD removal (Primary Dx); Acute vaginitis; Screening examination for venereal disease; Galactorrhea 09/11/2024 Travel 09/09/2024 Telephone [facility] PEDS [address] [place] [address] Nadine Philip FNP August09/03/2024 10:00 AM EST Office Visit [facility] [address] [place] [address] PuxicoEliana FNP Encounter for adult wellness visit (Primary Dx); Essential hypertension; 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); Poor dentition requiring referral to dentistry; Eye exam, routine; Encounter for immunization; Encounter for screening mammogram for breast cancer 09/03/2024 Telephone [facility] [address] [place] [address] Nadine Philip FNP fyi ; Report BP reading 09/03/2024 Travel 08/05/2024 Orders Only [facility] [address] [place] [address] Nadine Philip FNP Encounter for screening 08/05/2024 Telephone [facility] [address] [place] [address] Nadine Philip FNP TB Test 08/05/2024 Telephone [facility] [address], [place] [phone] Nadine Philip FNP FYI from Last 3 Months Immunizations Name Administration Dates Next Due Influenza Injectable Quadriv alant Preservative Free IIV4 MDCK 08/17/2017 Influenza injectable quadriv alent preservative free 06/30/2022 Influenza, IIV3, injectable 06/13/2021 Influenza, seasonal, injecta ble, preservative free 09/03/2024 PPD Test 04/08/2019,08/15/2017,08/17/2016 Pfizer Covid-19 Vaccine 12+ 09/03/2024 Pfizer Covid-19 Vaccine 12+ Bivalent 03/19/2023 Tdap 07/04/2021 Social History Tobacco Use Types Packs/Day Years Used Date Smoking Tobacco: Former Cigarettes Q uit: 1997 Passive Smoke Exposure: Never Smokeless Tobacco: Never Tobacco Cessation:Counseling Given: Not Answered Alcohol Use Standard Drinks/Week Comments Not Currently [...] not to disclose 2021 10:40 AM EDT Last Filed Vital Signs Vital Sign Reading Time Taken Comments Blood Pressure 168/98 09/11/2024 11:04 AM EST Pulse 104 09/11/2024 11:04 AM EST Temperature 36.4 ??C (97.5 ??F) 09/11/2024 11:[address] Respiratory Rate 20 09/11/2024 11:04 AM EST Oxygen Saturation 99% 09/11/2024 11:04 AM EST Inhaled Oxygen Concentration - - Weight 64.7 kg (142 lb 9.6 oz) 09/11/2024 11:04 AM EST Height 157.5 cm (5' 2 ) 09/11/2024 11:04 AM EST Body Mass Index 26.08 09/11/2024 11:04 AM EST Plan of Treatment Health Maintenance Due Date Last Done Comments Hepatitis C Screening 1998 Hepatitis B Vaccines (1 of 3 - 19+ 3-dose series) 1999 Mammogram 2020 Alcohol/Substance Use Screening 09/03/2025 09/03/2024 Depression Screening 09/03/2025 09/03/2024, 09/03/19 SDOH Screening 09/03/2025 09/03/2024 Family Planning (PISQ) 09/11/2025 09/11/2024 Tobacco Screening 09/11/2025 09/11/2024 Cervical Cancer Screening 08/30/2027 HPV/Cotest 08/30/2027 08/30/2022 Pap Smear 08/30/2027 08/30/2022 Lipid Panel 09/03/2029 09/03/2024 Zoster Vaccines (1 of 2) 2030 DTaP/Tdap/Td Vaccines (2 - Td or Tdap) 07/04/2031 07/04/2021 RSV Patients and Patients Aged 60 years or older (1 - 1-dose 75+ series) 2055 COVID-19 Vaccine Completed 09/03/2024, , 10/20/2020, Additional history exists HIV Screening Completed 09/03/2024 Influenza Vaccine Completed 09/03/2024, , 06/13/2021, Additional history exists HIB Vaccines Aged Out No longer eligi ble based on patient's age to complete this topic HPV Vaccines Aged Out No longer eligi ble based on patient's age to complete this topic Hepatitis A Vaccines Aged Out No long er eligible based on patient's age to complete this topic IPV Vaccines Aged Out No longer eligi ble based on patient's age to complete this topic Meningococcal Vaccine Aged Out No shahzad dragan eligible based on patient's age to complete this topic Pneumococcal Vaccine: Pediatrics (0 to 5 Years) and At-Risk Patients (6 to 64 Years) Aged Out No longer eligible based on patient's age to complete this topic RSV under 20 months Aged Out No longe r eligible based on patient's age to complete this topic Rotavirus Vaccines Aged Out No longer eligible based on patient's age to complete this topic Procedures Procedure Name Priority Date/Time Associated Diagnosis Comments POCT WET MOUNT/PEDRO Routine 09/11/2024 11 :50 AM EST Acute vaginitis CHLAMYDIA/N. GONORRHOEAE RNA, TMA, UROGENITAL Routine 09/11/2024 11:46 AM EST Screening examination for venereal disease ECG 12-LEAD Routine 09/03/2024 5:09 PM EST [...] Routine 09/03/2024 11:48 AM EST Essential hypertension IMAGE-GUIDED PAP W/AGE BASED SCR,W/CT/NG/TRICH Routine 08/30/2022 4:35 PM EST from Last 3 Months or Most Recently Relevant to Health Maintenance Results * POCT fern test, vaginal fluid manually resulted (09/11/2024 11:50 AM EST) PEDRO Prep Positive Comment:pH 5.5, pos whiff, p os clue, neg trich, neg yeast, neg wbc Vaginal Fluid Vaginal structure / Unknown 09/11/2024 11:50 AM EST Impressions Feli Neri CNM - 09/11/2024 11:50 AM EST Bacterial vaginosis Feli Neri CNM POINT OF CARE TEST ENTER/ EDIT ORDERABLES Final Result * Chlamydia/N. Gonorrhoeae RNA, TMA, Urogenitial (09/11/2024 11:46 AM EST) CT PCR NOT DETECTED Not Detect. [facility] Comment:A not detected test result does not exclude the possibilityof infection because test results can be affected byimproper specimen collection, concurrent antibiotic therapy,or the number of organisms in the specimen which may bebelow the sensitivity of the test. As with many diagnostictests, results from the Xpert CT/NG assay should beinterpreted in conjunction with other laboratory andclinical data available to the clinician.Xpert CT/NG performance has not been evaluated in patientsless than 14 years of age. The assay should not be used forthe evaluationof suspected sexual abuse or for other medico-legalindications. Additional testing is recommended in anycircumstance when false positive or false negative resultscould lead to adverse medical, social or psychologicalconsequences. NG PCR NOT DETECTED Not Detect. [facility] Comment:A not detected test result does not exclude the possibilityof infection because test results can be affected byimproper specimen collection, concurrent antibiotic therapy,or the number of organisms in the specimen which may bebelow the sensitivity of the test. As with many diagnostictests, results from the Xpert CT/NG assay should beinterpreted in conjunction with other laboratory andclinical data available to the clinician.Xpert CT/NG performance has not been evaluated in patientsless than 14 years of age. The assay should not be used forthe evaluationof suspected sexual abuse or for other medico-legalindications. Additional testing is recommended in anycircumstance when false positive or false negative resultscould lead to adverse medical, social or psychologicalconsequences. Swab Vaginal structure / Unknown 09/11/2024 11:46 AM EST 09/11/2024 5:27 PM EST [facility] - 09/12/2024 2:40 PM EST Vaginal Feli Neri CNM LAB MICROBIOLOGY - GENERA L ORDERABLES Final Result [facility] [address] [place] [phone] * ECG 12 lead (09/03/2024 5:09 PM EST) [facility] - 09/03/2024 5:09 PM EST NSR. See scanned report [facility] ECG ORDERABLES Final Result * Urinalysis Complete (09/03/2024 11:50 AM EST) Color Urine Yellow [facility] Appearance Urine Clear [facility] PH 6.5 5.0 - 9.0 [facility] Glucose Urine UA Negative Negative mg/dL [facility] Urine Blood Negative Negative [facility] Specific [place] - Urine 1.020 1.005 - 1.025 [facility] Urine Protein Negative Neg-Trace mg/dL [facility] Urine Ketones Negative Negative mg/dL [facility] Nitrite Urine Negative Negative [facility] Leukocyte Esterase Urine Negative Negative [facility] RBC Urine 0-2 0 - 2 /HPF [facility] Urine WBC 0-5 0 - 5 /HPF [facility] Urine Squamous Epithelial Cell 6-10 0 - 2 /HPF [facility] Urine Bacteria 1+ None Seen [facility] Hyaline Casts, Urine 0-2 0 - 2 /LPF [facility] Urine (Urine, Random) 09/03/2024 11:50 AM EST 09/03/2024 2:15 PM EST [facility] LAB URINE ORDERABLES Final Re sult Performing Organization Address [facility] Co de Phone Number [facility] [address] [place] [phone] * Syphilis Screen (09/03/2024 11:48 AM EST) Syphilis Screen Nonreactive Nonreactive [facility] Blood 09/03/2024 11:4 8 AM EST 09/03/2024 2:20 PM EST [facility] LAB BLOOD ORDERABLES Final Re sult Performing Organization Address [facility] de Phone Number [facility] [address] [place] [phone] * T-SPOT??.TB (09/03/2024 11:48 AM EST) T Spot TB Negative Negative [facility] Comment:A negative test resu lt does [...] as aquantitative test. TS PANEL A 0 [facility] TS PANEL B 0 [facility] Negative Control Passed [facility] Positive Control Passed [facility] Comment:For additional infor baljit, please refer tohttp://education.[employer]/faq/GOO610(This link is being provided for informational/educational purposes only.)THIS TEST WAS PERFORMED AT:[facility]/[id number] [place] [phone] BREWER MD,PHD 09/03/2024 11:4 8 AM EST 09/03/2024 2:20 PM EST [facility] BLOOD ORDERABLES Final Re sult [facility] [address] [place] [phone] * HIV-1/2 Antigen and Antibodies, Fourth Generation, with Reflexes (09/03/2024 11:48 AM EST) HIV AB/AG Nonreactive Nonreactive [facility] Comment:HIV-1 p24 Ag and/or HIV-1/HIV-2 Ab not detected.A test result that is nonreactive does not exclude thepossibility of exposure to or infection with HIV-1 and/orHIV-2. Nonreactive results in this assay for individualswith prior exposure to HIV-1 and/or HIV-2 may be due toantigen and antibody levels that are below the limit ofdetection of this assay.The [employer] HIV Ag/Ab Combo assay result andsupplemental assay results should be interpreted inconjunction with the patient's clinical presentation,history and other laboratory results. If the results areinconsistent with clinical evidence, additional testing issuggested to confirm the result. Blood Venous blood specimen / Unknown 09/03/2024 11:48 AM EST 09/03/2024 2:20 PM EST [facility] BLOOD ORDERABLES Final Re sult [facility] [address] [place] [phone] * Lipid Panel, Standard (09/03/2024 11:48 AM EST) Triglycerides 43 <150 mg/dL [facility] Comment:Desirable Triglyceri de: less than 150 mg/dLBorderline High Triglyceride 150-199 mg/dLHigh Triglyceride: 200-499 mg/dLVery High Triglyceride: greater than or equal to 5OO mg/dL Cholesterol 157 <200 mg/dL [facility] Comment:Desirable Cholestero l: less than 200 mg/dLBorderline High Cholesterol: 200-239 mg/dLHigh Cholesterol: greater than 239 mg/dL LDL Cholesterol Calculated 97 <100 mg/dL [facility] Comment:Desirable LDL: less than 100 mg/dLNear Optimal/Above Optimal LDL: 110- 129 mg/dLBorderline High LDL: 130-159 mg/dLHigh LDL: 160-189 mg/dLVery High LDL: greater than or equal to 190 mg/dL HDL Cholesterol 52 >40 mg/dL [facility] Comment:Desirable HDL: great er than 40 mg/dL Note: This HDL assay may give artificially low results in patients with liver disease. Blood Venous blood specimen / Unknown 09/03/2024 11:48 AM EST 09/03/2024 2:20 PM EST [facility] BLOOD ORDERABLES Final Re sult Performing Organization Address City/[facility]/ZIP Co de Phone Number [facility] [address] [place] [phone] * (ABNORMAL) Comprehensive Metabolic Panel (09/03/2024 11:48 AM EST) Sodium 140 135 - 145 mmol/L [facility] Potassium 3.8 3.3 - 5.1 mmol/L [facility] Chloride 110(H) 96 - 108 mmol/L [facility] Carbon Dioxide 25 22 - 29 mmol/L [facility] Anion Gap 9(L) 12 - 20 [facility] Urea Nitrogen (BUN) 13 9 - 16 mg/dL [facility] Creatinine, Serum 0.89 0.5 - 1.4 mg/dL [facility] Estimated Glomerular Filt Rate >60 [facility] Comment:Chronic Kidney Disea se: Estimated GFR < 60 mL/min/1.72a6Eaaggt Kidney Disease: Estimated GFR < 15 mL/min/1.73m2 Glucose 86 60 - 115 mg/dL [facility] Calcium 8.9 8.4 - 10.2 mg/dL [facility] Bilirubin, Total 0.8 0.0 - 1.0 mg/dL [facility] Aspartate Amino Transferase 24 5 - 31 U/L [facility] Alanine Aminotransferase 27 0 - 31 U/L [facility] Total Protein 7.7 6.5 - 8.0 g/dL [facility] Albumin Level 4.5 3.5 - 5.0 g/dL [facility] Alkaline Phosphatase 45 39 - 117 U/L [facility] Blood Venous blood specimen / Unknown 09/03/2024 11:48 AM EST 09/03/2024 2:20 PM EST [facility] BLOOD ORDERABLES Final Re sult [facility] [address] [place] [phone] * Image-Guided Pap with Age-Based Screening??with CT/NG,??Trichomonas (08/30/2022 4:35 PM EST) Comment [facility]O Comment: This order for age-based cervical cancer and STI screening follows ACOG guidelines(PB 168, 140, KJK772). See individual assays for performing site location. Clinical Information: ROUTINE SCREEN Formula XO LMP: NONE GIVEN beprettyt Prev. PAP: NONE GIVEN beprettyt Prev. BX: NONE GIVEN beprettyt SOURCE: None given Formula XO Statement Of Adequacy: Formula XO Comment: Satisfactory for evaluation. Endocervical/transformation zone component present. Age and/or menstrual status not provided Interpretation/Re sult: Negative for intraepithelial lesion or malignancy. Formula XO COMMENT: This Pap test has been evaluated with computer assisted technology. Formula XO Unleavened Dough Mixer: Qu Netpulse Comment: MSM, CT(ASCP) CT screening location: [address] ??[phone] (Always Message) Que [employer]box Comment: EXPLANATORY NOTE: The Pap is a screening test for cervical cancer. It is not a diagnostic test and is subject to false negative and false positive results. It is most reliable when a satisfactory sample, regularly obtained, is submitted with relevant clinical findings and history, and when the Pap result is evaluated along with historic and current clinical information. HPV nRNA E6/E7 Not Detected Not Detected [facility] Comment: Methodology: Coke Worker-Mediated Amplification This assay detects E6/E7 viral messenger RNA (mRNA) from 14 high-risk HPV types (16,18,31,33,35,39,45,51,52,56,58,59,66,68). Cervical sources are required for HPV testing. If a vaginal source from a patient who has had a total hysterectomy with removal of cervix was submitted, please contact the testing laboratory for alternative testing options. For additional information, please refer to http://education.[employer]/faq/YRK941a0 (This link if provided for information/ educational purposes only.) Chlamydia trachomatis RNA, TMA, Urogenital NOT DETECTED NOT DETECTED [facility] [place] [employer] Neisseria gonorrhoeae RNA, TMA, Urogenital NOT DETECTED NOT DETECTED [facility] [place] [employer] (Always Message) [facility] Comment: The analytical performance characteristics of this assay, when used to test SurePath(TM) specimens have been determined by [facility]. The modifications have not been cleared or approved by the FDA. This assay has been validated pursuant to the CLIA regulations and is used for clinical purposes. For additional information, please refer to https://[employer]DIAMOND.[employer]/faq/AGU767 (This link is being provided for information/ educational purposes only.) Trichomonas vaginalis, QL, TMA, PAP Vial NOT DETECTED NOT DETECTED [facility] Comment: The analytical performance characteristics of this assay have been determined by [facility]. The modifications have not been cleared or approved by the FDA. This assay has been validated pursuant to the CLIA regulations and is used for clinical purposes. For additional information, please refer to [email or web address]/ faq/Trichomonastma (This link is being provided for information/ educational purposes only.) 08/30/2022 4:35 PM EST 08/31/2022 8:27 AM EST Narrative [facility] - 09/06/2022 10:36 AM EST FASTING: UNKNOWN Feli [facility]YOL[facility] LAB CYTOLOGY ORDERABLES F inal Result [facility] [address] [facility], [place] [address] [facility] [place] [facility] [address] [facility], ([address]) [place] [phone] from Last 3 Months or Most Recently Relevant to Health Maintenance Insurance [facility] C3 Care Teams Sprinkler Installer Relationship Specialty Start Date End Date Nadine Philip FNP [address] [place] [phone] PCP - General Family Medicine 05/17/22
--- OUTSIDE RECORDS SUMMARY | 2024-09-12 16:43 | XMS_ITS | Encounter Summary ---
Author Organization [employer] Address [address] [facility] 7t [place] [address] Care Team Providers Care Box Lining Machine Feeder Name Role Phone Nadine Philip Primary Care Provider [phone] Reason for Visit * Reason Onset Date Comments FYI 08/05/2024 Encounter Details Date Type Department Care Team (Late st Contact Info) Description 08/05/2024 Telephone [facility] [address] [place] [address] Nadine Philip FNP [address] [place], [place] [phone] FYI Social History Tobacco Use Types Packs/Day Years Used Date Smoking Tobacco: Former Cigarettes Q uit: 1997 Passive Smoke Exposure: Never Smokeless Tobacco: Never Alcohol Use Standard Drinks/Week Comments Not Currently 0 (1 standard drink = 0.6 oz pur e alcohol) Depression Answer Date Recorded Patient Health Questionnaire-9 Score 0 02/06/2023 Housing Stability Answer Date Recorded What is your housing situation today? I have allysondenis cabrera 06/07/[address] you li ve. Do you have problems with any of the following? None of the above 06/07/2023 Food Insecurity Answer Date Recorded Within the past 12 months, y ou worried that your food would run out before you got money to buy more: Never True 06/07/2023 Within the past 12 months,th e food you bought just didn't last and you didn't have enough money to get more: Never True Transportation Answer Date Recorded In the past 12 months, has l ack of transportation kept you from medical appts, meetings, work or from getting things needed for daily living? No 06/07/2023 Utilities Answer Date Recorded In the past 12 months, has t he electric, gas, oil or water company threatened to shut off services in your home? No 06/07/2023 Depression Answer Date Recorded Patient Health Questionnaire-2 Score 0 02/06/2023 Comments No Sex and Gender Information Value Date Recorded Sex Assigned at Female 06/19/2022 10:40 AM EDT Legal Sex Female 10:40 AM EDT Gender Identity Female 06/19/2022 10:40 AM EDT Sexual Orientation Choose not to disclose 2021 10:40 AM EDT documented as of this encounter Miscellaneous Notes * Telephone Encounter - Bobbypayton Andriy - 08/05/2024 12:52 PM EST Tc from pt calling requesting appt for PE , contract writer attempted to schedule however pt declined appt and was irate and upset as contract writer advised PE are being scheduled for school , work or program purposes call disconnected. documented in this encounter Plan of Treatment Not on file documented as of this encounter Visit Diagnoses Not on filedocumented in this encounter Additional Health Concerns Assessment Noted Time PHQ-9 Depression Total Score: 0 02/07/20 23 3:14 PM EDT documented as of this encounter Care Teams Box Lining Machine Feeder Relationship Specialty Start Date End Date Nadine Philip FNP [address] [place] [address] PCP - General Family Medicine 05/17/22 documented as of this encounter
--- OUTSIDE RECORDS SUMMARY | 2024-09-12 16:43 | XMS_ITS | Encounter Summary ---
Author Organization [employer] Address [address] [facility] 7t [place] [address] Care Team Providers Care Plastics Fabricator Or Welder Name Role Phone Nadine Philip Primary Care Provider [phone] Reason for Visit * Reason Onset Date Comments Rani recall 09/09/2024 Encounter Details Date Type Department Care Team ([facility] st Contact Info) Description 09/09/2024 Telephone [facility] [address] [place], [place] [phone] Nadine Philip FNP [address] [place], [place] [phone] August recall Social History Tobacco Use Types Packs/Day Years [...] encounter Miscellaneous Notes * Telephone Encounter - Marc Seaman MA - 09/09/2024 10:51 AM EST T/C to pt to scheduled August follow-up BP. No answer LVM to call clinic back. Mailed communication letter. If pt call back please schedule pt follow-up BP. documented in this encounter Plan of Treatment Not on file documented as of this encounter Visit Diagnoses Not on filedocumented in this encounter Additional Health Concerns Assessment Noted Time PHQ-9 Depression Total Score: 0 09/03/19 25 11:30 AM EST documented as of this encounter Care Teams Plastics Fabricator Or Welder Relationship Specialty Start Date End Date Nadine Philip FNP [address] [place] [address] PCP - General Family Medicine 05/17/22 documented as of this encounter
--- OUTSIDE RECORDS SUMMARY | 2024-09-12 16:43 | XMS_ITS | Clinical Summary ---
Author Organization [facility] Address [address] [place] [address] Care Team Providers Care Pharmacists Name Role Phone Miguel Jeffers Primary Care Provider [phone] Source Comments PLEASE NOTE, if this patient is a minor, it may be UNLAWFUL to discuss sensitive information that is contained in these records (such as FAMILY PLANNING, MENTAL HEALTH or SUBSTANCE ABUSE) with the minor patient's parent or other person without the patient's specific authorization.[facility] Social History Tobacco Use Types Packs/Day Years Used Date Smoking Tobacco: Never Alcohol Use Standard Drinks/Week Comments Not Asked 0 (1 standard drink = 0.6 oz pur e alcohol) Social Connections Answer Date Recorded Social Connections and Isolation 0 04/08/2019 Financial Resource Strain Answer Date R ecorded Financial Resource Strain 0 2018 Stress Answer Date Recorded Stress 0 04/08/2019 Physical Activity Answer Date Recorded Physical Activity 0 04/08/2019 Food Insecurity Answer Date Recorded Food 0 04/08/2019 Transportation Needs Answer Date Record ed Transportation 0 04/08/2019 Housing Stability Answer Date Recorded Housing 0 04/08/2019 Safety and Environment Answer Date Roc rded Safety 0 04/08/2019 Utilities Answer Date Recorded Utilities 0 04/08/2019 Employment Answer Date Recorded Employment 0 04/08/2019 Comments Unknown Sex and Gender Information Value Date Recorded Sex Assigned at Not on file Legal Sex Female 7:22 AM PDT Gender Identity Not on file Sexual Orientation Not on file Last Filed Vital Signs Vital Sign Reading Time Taken Comments Blood Pressure 138/88 12/09/2016 2:18 PM EDT rig ht Pulse 69 12/09/2016 2:00 PM EDT Temperature - - Respiratory Rate 16 12/09/2016 2:00 PM EDT Oxygen Saturation 100% 12/09/2016 2:00 PM EDT Inhaled Oxygen Concentration - - Weight 68.7 kg (151 lb 6.4 oz) 12/09/2016 2:00 P M EDT Height 161.4 cm (5' 3.53 ) 12/09/2016 2:00 PM ED T Body Mass Index 26.37 12/09/2016 2:00 PM EDT Plan of Treatment Health Maintenance Due Date Last Done Comments Diabetes Screening 1980 HPV Screening 1980 Hepatitis C Screening 1980 Lipid Screening 1980 Pap + HPV 1980 Tobacco Screening 1980 HIV Screening 1995 Relationship Safety Screening/Counseling 1995 Imm-DTaP/Tdap/Td (1 - Tdap) 1999 Imm-Hepatitis B (1 of 3 - 19+ 3-dose series) 0 Cervical Cancer Screening 2001 Pap Smear 2001 Hypertension Screening (#1) 12/09/2017 Breast Cancer Screening (Mammogram) 2020 Gsm-IPDTU-51 (2023-) 04/20/2024 Imm-Influenza (#1) 2024 Alcohol and Drug Screen 08/20/2024 Depression Annual Screen 08/20/2024 Cervical Ablation/Cold-Knife Conization Discontinued Cervical Cryotherapy Discontinued Colposcopy Discontinued Endometrial Biopsy Discontinued Excision/Leep Discontinued HPV Genotyping Discontinued Vaginal Pap Discontinued Vulvoscopy Discontinued Insurance [facility] [place] [id number] [place] Care Teams Pharmacists Relationship Specialty Start Date End Date Miguel Jeffers PA [address] [place] [address] PCP - General Internal Medicine 12/18/16
--- OUTSIDE RECORDS SUMMARY | 2024-09-12 16:43 | XMS_ITS | Encounter Summary ---
Author Organization [facility] Address [address] [facility] 7t [place] [address] Care Team Providers Care Biomedical Instrument Technician Name Role Phone Nadine Philip Primary Care Provider [phone] Reason for Visit * Reason Onset Date Comments Nurse Triage 05/12/2024 Encounter Details Date Type Department Care Team (Late st Contact Info) Description 05/12/[address] [facility] [address] [place] [address] Nadine Philip FNP [address] [place], [place] [phone] Nurse Triage Social History Tobacco Use Types Packs/Day Years [...] encounter Miscellaneous Notes * Telephone Encounter - Shakila Drew - 05/12/2024 4:15 PM EDT Symptoms: Rash or Redness - Widespread Outcome: Schedule a same-day appointment or talk to a nurse or provider today Reason: Caller denied all higher acuity questions The caller accepted this outcome. Pt reports poison Rosalva Contact pt at [phone] documented in this encounter Plan of Treatment Not on file documented as of this encounter Visit Diagnoses Not on filedocumented in this encounter Additional Health Concerns Assessment Noted Time PHQ-9 Depression Total Score: 0 02/07/20 3:14 PM EDT documented as of this encounter Care Teams Biomedical Instrument Technician Relationship Specialty Start Date End Date Nadine Philip FNP [address] [place] [phone] PCP - General Family Medicine 05/17/22 documented as of this encounter
--- OUTSIDE RECORDS SUMMARY | 2024-09-12 16:43 | XMS_ITS | Encounter Summary ---
Author Organization [facility] Address [address] [facility] 7t [place] [address] Care Team Providers Care Data Entry Machine Operator Name Role Phone Nadine Philip ANGEL Primary Care Provider [phone] Encounter Details Date Type Department Care Team (Late st Contact Info) Description 09/11/2024 11:00 AM EST Office Visit [facility] [address] [place], [place] [phone] Feli Neri CNM [address] [place] [address] Encounter for IUD removal (Primary Dx); Acute vaginitis; Screening examination for venereal disease; Galactorrhea Social History Tobacco Use Types Packs/Day Years [...] Mass Index 26.08 09/11/2024 11:04 AM EST documented in this encounter Progress Notes * Feli Neri CNM - 09/11/2024 11:00 AM EST Subjective Patient ID: Adrianna Agrawal is a 43 y.o. female who presents for IUD removal Pap NIL/HPV neg, Liletta inserted 08/2022. Frustrated by cramping, would like IUD removed today. Also wonders if BP has been impacted by IUD use. Not sexually active since January. HIV/syphilis negative 08/2024. Also notes some discharge and odor. Has mammogram scheduled later this week, would like breast exam today. Notes occasional bilateral galactorrhea since last child was born 2-3y ago. Breastfedbriefly. No TSH/Pr on file. Amenorrheic with IUD, not planning any more pregnancies. Review of Systems Genitourinary: Positive for pelvic pain and vaginal discharge. Negative for dysuria and vaginal pain. Objective BP (!) 168/98 (BP Location: Left arm, Patient Position: Sitting, BP Cuff Size: Adult) Pulse 104 Temp 97.5 ??F (36.4 ??C) (Temporal) Resp 20 Ht 5' 2 (1.575 m) Wt 142 lb 9.6 oz (64.7 kg) SpO2 99% BMI 26.08 kg/m?? Physical Exam Constitutional: Appearance: Normal appearance. Chest: Breasts: Right: Normal. No swelling, bleeding, inverted nipple, mass, nipple discharge, skin change or tenderness. Left: Normal. No swelling, bleeding, inverted nipple, mass, nipple discharge, skin change or tenderness. Genitourinary: General: Normal vulva. Labia: Right: No rash, tenderness, lesion or injury. Left: No rash, tenderness, lesion or injury. Vagina: Normal. No signs of injury and foreign body. No vaginal discharge, erythema, tenderness, bleeding or lesions. Cervix: No cervical motion tenderness, discharge, friability, lesion, erythema, cervical bleeding or eversion. Uterus: Normal. Not enlarged and not tender. Adnexa: Right adnexa normal and left adnexa normal. Right: No mass, tenderness or fullness. Left: No mass, tenderness or fullness. Comments: IUD strings noted. Body of IUD nonpalpable. Scant bloody discharge Bimanual done first, neg CMT. Lymphadenopathy: Upper Body: Right upper body: No supraclavicular or axillary adenopathy. Left upper body: No supraclavicular or axillary adenopathy. Neurological: Mental Status: She is alert. Psychiatric: Mood and Affect: Mood normal. Behavior: Behavior normal. Assessment/Plan Diagnoses and all orders for this visit: Encounter for IUD removal - acetaminophen (Tylenol) tablet 325 mg IUD Removal Procedure Note Type of IUD: Cristinetta Date of insertion: 2022 Reason for removal: Side effect: cramping Procedure Time Out Documentation Time out performed Procedure Details IUD strings visible: yes Removal: IUD strings grasped and IUD removed intact with gentle traction. The patient tolerated theprocedure well. All appropriate instructions regarding removal were reviewed. The patient was advised to call for any fever or for prolonged or severe pain or bleeding. Tylenol given for cramping in office. Acute vaginitis - POCT fern test, vaginal fluid manually resulted For metronidazole as prescribed. Avoid vaginal irritants. Report worsening or persistent symptoms. Screening examination for venereal disease - Chlamydia/N. Gonorrhoeae RNA, TMA, Urogenitial Relayed negative HIV and syphilis testing. Will send Gonorrhea/Chlamydia and contact with results. Other orders - norethindrone (Ortho Micronor) 0.35 MG tablet; Take 1 tablet (0.35 mg) by mouth Once per day. - metroNIDAZOLE (Flagyl) 500 MG tablet; Take 1 tablet (500 mg) by mouth 2 times daily for 7 days. Normal CBE today, has mammogram this week. Will order TSH/Prl after that to followup on galactorrhea. Would like progestin only pill rx for future use. Reviewed need to take daily at same time, back upx 3 days. Amenorrhea common with this pill. Let me know if interested in other methods. Combined oral contraceptive pill and Depo contraindicated due to BP. Also given internal condoms to try. Reviewed use. documented in this encounter Miscellaneous Notes * Result Encounter Note - Feli Neri CNM - 09/11/2024 11:00 AM EST Please let Adrianna know her Gonorrhea/Chlamydia tests were negative, which is good. Thanks! documented in this encounter Plan of Treatment Not on file documented as of this encounter Procedures Procedure Name Priority Date/Time Associated Diagnosis Comments POCT WET MOUNT/PEDRO Routine 09/11/2024 11 :50 AM EST Acute vaginitis CHLAMYDIA/N. GONORRHOEAE RNA, TMA, UROGENITAL Routine 09/11/2024 11:46 AM EST Screening examination for venereal disease documented in this encounter Results * POCT fern test, vaginal fluid [...] EST) CT PCR NOT DETECTED Not Detect. [facility] Comment:A not detected test result does [...] psychologicalconsequences. NG PCR NOT DETECTED Not Detect. [facility] Comment:A not detected test result does [...] 11:46 AM EST 09/11/2024 5:27 PM EST Narrative [facility] - 09/12/2024 2:40 PM EST Vaginal Feli Neri CNM LAB MICROBIOLOGY - GENERA L ORDERABLES Final Result [facility] [address] [place] [address] [phone] documented in this encounter Visit Diagnoses Diagnosis Encounter for IUD removal- Primary Acute vaginitis Unspecified vaginitis and vulvovaginitis Screening examination for venereal disease Galactorrhea Galactorrhea not associated with childbirth documented in this encounter Administered Medications Inactive Administered Medications - up to 3 most recent administrations Medication Order MAR Action Action Date Dose Rate Site acetaminophen (Tylenol) tablet 325 mg 325 mg, Oral, Once, On Gabi 09/11/24 at 1145, For 1 doseIndications:Encounter for IUD removal Given 09/11/2024 11:45 AM EST 325 mg documented in this encounter Additional Health Concerns Assessment Noted Time PHQ-9 Depression Total Score: 0 09/03/19 11:30 AM EST documented as of this encounter Care Teams Data Entry Machine Operator Relationship Specialty Start Date End Date Nadine Philip FNP [address] [place] [address] PCP - General Family Medicine 05/17/22 documented as of this encounter
--- OUTSIDE RECORDS SUMMARY | 2024-09-12 16:43 | XMS_ITS | Encounter Summary ---
Author Organization [employer] Address [address] [facility] 7t [place] [address] Care Team Providers Care Ice Cream Freezer Name Role Phone Nadine Philip CURATOR OF COLLECTIONS Primary Care Provider [phone] Encounter Details Date Type Department Care Team (Latest Contact Info) Description 09/11/2024 Travel Social History Tobacco Use Types Packs/Day [...] documented as of this encounter Care Teams Ice Cream Freezer Relationship Specialty Start Date End Date Nadine Philip FNP [address] [place] [phone] PCP - General Family Medicine 05/17/22 documented as of this encounter
--- OUTSIDE RECORDS SUMMARY | 2024-09-12 16:43 | XMS_ITS | Encounter Summary ---
Author Organization [employer] Address [address] [facility] 7t [place] [address] Care Team Providers Care Drier Take Off Tender Name Role Phone Nadine Philip Primary Care Provider [phone] Encounter Details Date Type Department Care Team ([facility] st Contact Info) Description 12/07/2023 Telephone [facility] [address] [place], [place] [phone] Nadine Philip FNP [address] [place] [address] Social History Tobacco Use Types Packs/Day Years [...] housing situation today? I have allyson cabrera 06/07/[address] you [...] encounter Miscellaneous Notes * Telephone Encounter - Nikkie Connor - 12/07/2023 8:56 AM EDT TC from pt would like to know if we have spikevax? If so pt would like to schedule an appt to get injection . documented in this encounter Plan of Treatment Not on file documented as of this encounter Visit Diagnoses Not on filedocumented in this encounter Additional Health Concerns Assessment Noted Time PHQ-9 Depression Total Score: 0 02/07/20 23 3:14 PM EDT documented as of this encounter Care Teams Drier Take Off Tender Relationship Specialty Start Date End Date Nadine Philip FNP [address] [place] [phone] PCP - General Family Medicine 05/17/22 documented as of this encounter
--- OUTSIDE RECORDS SUMMARY | 2024-09-12 16:44 | XMS_ITS | Encounter Summary ---
Author Organization [employer] Address [address] [facility] 7t [place] [address] Care Team Providers Care Tree Tapping Laborer Name Role Phone Nadine Philip Primary Care Provider [phone] Reason for Visit * Reason Onset Date Comments Lab Orders 10/12/2022 Encounter Details Date Type Department Care Team (Late st Contact Info) Description 10/12/2022 Telephone [facility] [address] [place] [address] Nadine Philip FNP [address] [place], [place] [phone] Lab Orders Social History Tobacco Use Types Packs/Day Years Used Date Smoking Tobacco: Never Assessed Depression Answer Date Recorded Patient Health Questionnaire-9 [...] not to disclose 2021 10:40 AM EDT COVID-19 Exposure Response Date Recorded In the last 10 days, have yo u been in contact with someone who was confirmed or suspected to have Coronavirus/COVID-19? No / Unsure 02/06/2023 2:39 PM EDT documented as of this encounter Miscellaneous Notes * Telephone Encounter - Magalys Anderson RN - 10/16/2022 11:38 AM EST Please review and advise. Pt was ordered to get EMG done during visit on 06/30/22. Looks like orderwas faxed. Unable to check [facility] system to see if pt had it done at this time. Please advise if new order can be generated as it does not appear pt had it done. * Telephone Encounter - Dagoberto Ashraf - 10/12/2022 1:50 PM EST Tc from pt requesting a call back in regards to nerve conduction order, De Icer Finisher sees no recent orders. Please contact for clarifications at [phone] documented in this encounter Plan of Treatment Not on file documented as of this encounter Visit Diagnoses Not on filedocumented in this encounter Care Teams Tree Tapping Laborer Relationship Specialty Start Date End Date Nadine Philip FNP [address] [place] [address] PCP - General Family Medicine 05/17/22 documented as of this encounter
== END 2024-09-12 16:19 | disposition home or self-care (01) ==
LOC: HO.MAMMO 16:18
PROVIDERS: PCP Registered Nurse; Visit Provider Registered Nurse
DX: Z12.31 Encounter for screening mammogram for malignant neoplasm of breast (principal)
CPT/HCPCS: 77063; 77067

== ENCOUNTER → 2024-09-12 16:30 | Outpatient (BNV) | payer MEDICAID, SELFPAY | PROVIDERS: PCP Registered Nurse; Visit Provider Internal Medicine | DX: Z12.31 Encounter for screening mammogram for malignant neoplasm of breast (principal) | CPT/HCPCS: 77063; 77067 ==

== ENCOUNTER 2024-10-31 10:31 | Outpatient (REF) | payer MEDICAID, SELFPAY ==
--- OUTSIDE RECORDS SUMMARY | 2024-10-31 11:57 | XMS_ITS | Encounter Summary ---
Author Organization [facility] Address [address] [facility] 7t [place] [address] Care Team Providers Care Greenhouse Or Nursery Transplanter Name Role Phone Nadine Philip ANGEL Primary Care Provider [phone] Encounter Details Date Type Department Care Team (Late st Contact Info) Description 10/31/2024 Population Health Risk Score [facility] ([facility]) Department [address] [facility] [address] [place] [address] Provider, Population Health Generic Social History Tobacco Use Types Packs/Day Years [...] as of this encounter Plan of Treatment Upcoming Encounters Date Type Department Care Team (Late st Contact Info) Description 11/17/2024 10:15 AM EDT Office Visit [facility] PED[facility] [address] [place] [address] Nadine Philip FNP [address] [place] [address] documented as of this encounter Visit Diagnoses Not on filedocumented in this encounter Additional Health Concerns Assessment Noted Time PHQ-9 Depression Total Score: 0 09/03/19 25 11:30 AM EST documented as of this encounter Care Teams Greenhouse Or Nursery Transplanter Relationship Specialty Start Date End Date Nadine Philip FNP [address] [place] [address] PCP - General Family Medicine 05/17/22 documented as of this encounter
--- OUTSIDE RECORDS SUMMARY | 2024-10-31 11:57 | XMS_ITS | Encounter Summary ---
Author Organization [employer] Address [address] [facility] 7t [place] [address] Care Team Providers Care Furnace Utility Operator Name Role Phone Nadine Philip BUSINESS APPLICATIONS MANAGER Primary Care Provider Encounter Details Date Type Department Care Team (Late st Contact Info) Description 10/29/2024 Telephone [facility] [address] [place], [place] [phone] Feli Neri CNM [address] [place], [place] [phone] Social History Tobacco Use Types Packs/Day Years [...] encounter Miscellaneous Notes * Telephone Encounter - Feli Neri CNM - 10/29/2024 1:11 PM EDT Blood work ordered 09/23, but it doesn't look like it has been done. Please ask Adrianna To get labs done. Thanks! documented in this encounter Plan of Treatment Upcoming Encounters Date Type Department Care Team (Late st Contact Info) Description 11/17/2024 10:15 AM EDT Office Visit [facility] & PEDS [address] [place] [address] Nadine Philip FNP [address] [place] [address] documented as of this encounter Visit Diagnoses Not on filedocumented in this encounter Additional Health Concerns Assessment Noted Time PHQ-9 Depression Total Score: 0 09/03/19 25 11:30 AM EST documented as of this encounter Care Teams Furnace Utility Operator Relationship Specialty Start Date End Date Nadine Philip FNP [address] [place] [address] PCP - General Family Medicine 05/17/22 documented as of this encounter
--- OUTSIDE RECORDS SUMMARY | 2024-10-31 11:57 | XMS_ITS | Encounter Summary ---
Author Organization [employer] Address [address] [facility] [address]t [place] [address] Care Team Providers Care Time Lock Expert Name Role Phone Nadine Philip Primary Care Provider [phone] Encounter Details Date Type Department Care Team ([facility] st Contact Info) Description 12/07/2023 Telephone [facility] & PEDS [address] [place], [place] [phone] Nadine Philip FNP [address] [place] [address] Social History Tobacco Use Types Packs/Day Years [...] Description 11/17/2024 10:15 AM EDT Office Visit [facility] PEDS [address] [place] [address] Nadine Philip FNP [address] [place] [address] documented as of this encounter Visit Diagnoses Not on filedocumented in this encounter Additional Health Concerns Assessment Noted Time PHQ-9 Depression Total Score: 0 02/07/20 23 3:14 PM EDT documented as of this encounter Care Teams Time Lock Expert Relationship Specialty Start Date End Date Nadine Philip FNP [address] [place] [address] PCP - General Family Medicine 05/17/22 documented as of this encounter
--- OUTSIDE RECORDS SUMMARY | 2024-10-31 11:57 | XMS_ITS | Clinical Summary ---
Author Organization [facility] Address [address] [place] [address] Care Team Providers Care Manager Delivery Name Role Phone Miguel Jeffers Primary Care Provider Source Comments PLEASE NOTE, if this patient [...] (#1) 12/09/2017 Breast Cancer Screening (Mammogram) 2020 [id number] (2023-) 04/20/2024 Imm-Influenza (#1) 2024 Alcohol and Drug Screen 08/20/2024 Depression Annual Screen 08/20/2024 Cervical Ablation/Cold-Knife Conization Discontinued Cervical Cryotherapy Discontinued Colposcopy Discontinued Endometrial Biopsy Discontinued Excision/Leep Discontinued HPV Genotyping Discontinued Vaginal Pap Discontinued Vulvoscopy Discontinued Insurance [facility] [place] [address] [place] Care Teams Manager Delivery Relationship Specialty Start Date End Date Miguel Jeffers PA [address] [place] [address] PCP - General Internal Medicine 12/18/16
--- OUTSIDE RECORDS SUMMARY | 2024-10-31 11:57 | XMS_ITS | Clinical Summary ---
Author Organization [facility] Address [address] [facility] [address] [place] [address] Care Team Providers Care Silver Solution Mixer Name Role Phone Nadine Philip [facility] Primary Care Provider [phone] Allergies No known active allergies Medications acetaminophen [...] day. 28 tablet 12 01/23/09/10/19 26 Active Active Problems Problem Noted Date Diagnosed Date Galactorrhea 09/11/2024 Bilateral bunions 05/22/2023 Overview (05/22/2023): Bilateral bunions noted on exam Assessment & Plan (05/22/2023 6:17 PM EDT): Refer Podiatry Recommend supportive footwear F/u PRN with PCP Poor dentition 05/22/2023 Overview (05/22/2023): Concern for dental infection Assessment & Plan (05/22/2023 6:21 PM EDT): Refer [facility] if you develop fever, worsening [...] stenosis, kidney disease, PITER, primary aldosteronism, pheochromocytoma, Washington's syndrome, coarctation of aorta, herbal supplements, primary [...] [facility] Assessment & Plan (05/22/2023 6:22 PM EDT): Educated pt that letter requests are managed by Forms Team Will Recommend she go goes to basement, medical records, and request approval of washer and dryer by apartment management F/u with psych provider Elevated liver function tests 08/30/2022 Gestational diabetes 08/30/2022 Paresthesia 05/17/2022 Encounters Date Type Department Care Team Description 10/31/2024 Population Health Risk Score [facility] (C3) Department [address] [phone] Provider, Population Health Generic 10/29/2024 Telephone [facility] [address] [place] [phone] Feli Neri CNM 09/23/[address] [address] Kylie Wallace, RN Results 09/23/[address] [address] Feli Neri CNM 09/15/[address] [address] Libby Brooks [place] 09/11/2024 11:00 AM EST Office Visit [address] [address] Feli Neri CNM Encounter for IUD removal (Primary Dx); Acute vaginitis; Screening examination for venereal disease; Galactorrhea 09/11/2024 Travel 09/09/2024 Telephone [facility] [address] [place] [address] Nadine Philip FNP August09/03/2024 10:00 AM EST Office Visit [facility] [address] [place] [address] Eliana Mejias FNP Encounter for adult wellness visit (Primary Dx); Essential hypertension; 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 [address] [place] [address] Nadine Philip FNP TB Test 08/05/[address] [phone] Nadine Philip FNP FYI from Last 3 [...] Date Smoking Tobacco: Former Cigarettes Q uit: 1998 Passive Smoke Exposure: Never Smokeless Tobacco: Never [...] 09/11/2024 11:04 AM EST Plan of Treatment Upcoming Encounters Date Type Department Care Team (Late st Contact Info) Description 11/17/2024 10:15 AM EDT Office Visit [facility] [address] [place], [place] [phone] Nadine Philip FNP [address] [place] [address] Health Maintenance Due Date Last Done Comments Hepatitis C Screening 1998 Hepatitis B Vaccines (1 of 3 - 19+ 3-dose series) 1999 Alcohol/Substance Use Screening 09/03/2025 09/03/2024 Depression Screening 09/03/2025 09/03/2024, 09/03/19 SDOH Screening 09/03/2025 09/03/2024 Family Planning (PISQ) 09/11/2025 09/11/2024 Tobacco Screening 09/11/2025 09/11/2024 Mammogram 09/12/2025 09/12/2024 Cervical Cancer Screening 08/30/2027 HPV/Cotest 08/30/2027 08/30/2022 [...] 5 Years) and At-Risk Patients (6 to 49) Years) Aged Out No longer eligible based on patient's age to complete this topic RSV under 20 months Aged Out No longe r eligible based on patient's age to complete this topic Rotavirus Vaccines Aged Out No longer eligible based on patient's age to complete this topic Procedures Procedure Name Priority Date/Time Associated Diagnosis Comments BI MAMMOGRAM SCREENING TOMOSYNTHESIS BILATERAL Routine 09/12/2024 4:25 PM EST Encounter for screening mammogram for breast cancer POCT WET MOUNT/PEDRO Routine 09/11/2024 11 :50 [...] Recently Relevant to Health Maintenance Results * BI Mammogram Screening Tomosynthesis Bilateral (09/12/2024 4:25 PM EST) Anatomical Region Laterality Modality Breast Bilateral Mammography 09/12/2024 4:25 PM EST Narrative 09/23/2024 10:40 AM EST ? [facility] ? [address] ?[place] [address] ? Mammography Report ? Signed ? Patient: Tanja,Mamie ?MR#: [id number] ? : 1980 ?Acct:[id number] ? Age/Sex: 43 / F ?ADM Date: 09/12/24 ? Loc: HO.MAMMO ? Attending Dr: Eliana Mejias HYDROMETEOROLOGICAL TECHNICIAN ? Ordering Physician: Eliana Mejias HYDROMETEOROLOGICAL TECHNICIAN ?Results: 1Nega ?? tive ? Date of Service: 09/12/24 ?Follow Up: 1 Year From Orig ?? inal Mammogram ? Procedure(s): MM tomosynthesis screening BI ?? Accession Number(s): [id number] ? cc: Nadine Philip HYDROMETEOROLOGICAL TECHNICIAN; Eliana Mejias HYDROMETEOROLOGICAL TECHNICIAN ? EXAMINATION: ?? MM SCREENING DIGITAL BREAST TOMOSYNTHESIS, BILATERAL ? CLINICAL INFORMATION: ? Screening. Asymptomatic. ? COMPARISON: ?? Mammography: Baseline. ? TECHNIQUE: ?? Digital breast mammography with tomosynthesis is performed in both the ?? craniocaudal and mediolateral oblique views along with computer-aided ?? detection (CAD). ? FINDINGS: ?? The breasts are heterogeneously dense, which may obscure small masses ?? (ACR BI-RADS breast composition Category c). ? There are no significant masses, abnormal calcifications, or other ?? abnormalities. ? MM/MM tomosynthesis screening BI ?? IMPRESSION: ?? No mammographic evidence of malignancy. ? ASSESSMENT: ? BI-RADS BI-RADS 1 - Negative ? RECOMMENDATION: ?? Routine annual mammography screening. ? 1 year F/U ? This examination should not preclude the clinical evaluation of a ?? suspicious palpable abnormality. ? This patient's information was entered into a reminder system with a ?? target due date for their next mammogram. ? Electronically signed by: ??Akilah Ge DO ??09/23/2024 10:37 AM EST ?? RP ? Dictated By: ?Akilah Ge DO ? Signed By: ?<Electronically signed by Akilah Ge, DO in OV> ? 09/23/24 1037 ? DD/ 1625 ? TD/TT: 09/12/24 1640 ? Reach Lift Truck Driver: ? Procedure Note Donroniter, Image - 09/23/2024 [facility] [address] [place] [address] Mammography Report Signed Patient: Adrianna AgrawalMR#: [id number] : 1980Acct:[id number] Age/Sex: 43 / FADM Date: 09/12/24 Loc: [facility] Attending Dr: Eliana Mejias HYDROMETEOROLOGICAL TECHNICIAN Ordering Physician: Eliana MejiasPResults: 1Nega tive Date of Service: 09/12/24Follow Up: 1 Year From Orig inal Mammogram Procedure(s): MM tomosynthesis screening BI Accession Number(s): [id number] cc: Nadine Philip HYDROMETEOROLOGICAL TECHNICIAN; Eliana Mejias EXAMINATION: MM SCREENING DIGITAL BREAST TOMOSYNTHESIS, BILATERAL CLINICAL INFORMATION: Screening. Asymptomatic. COMPARISON: Mammography: Baseline. TECHNIQUE: Digital breast mammography with tomosynthesis is performed in both the craniocaudal and mediolateral oblique views along with computer-aided detection (CAD). FINDINGS: The breasts are heterogeneously dense, which may obscure small masses (ACR BI-RADS breast composition Category c). There are no significant masses, abnormal calcifications, or other abnormalities. MM/MM tomosynthesis screening BI IMPRESSION: No mammographic evidence of malignancy. ASSESSMENT: BI-RADS BI-RADS 1 - Negative RECOMMENDATION: Routine annual mammography screening. 1 year F/U This examination should not preclude the clinical evaluation of a suspicious palpable abnormality. This patient's information was entered into a reminder system with a target due date for their next mammogram. Electronically signed by: Akilah Ge DO 09/23/2024 10:37 AM EST Dictated By: Akilah Ge DO Signed By: <Electronically signed by Akilah Ge DO in OV> 09/23/24 1037 DD/ 1625 TD/TT: 09/12/24 1640 Reach Lift Truck Driver: [facility] HYDROMETEOROLOGICAL TECHNICIAN IMG BI PROCEDURES Final Resul t * POCT fern test, vaginal fluid manually [...] EST) CT PCR NOT DETECTED Not Detect. [facility] Comment:A not detected test [...] psychologicalconsequences. NG PCR NOT DETECTED Not Detect. [facility] Comment:A not detected test [...] 11:46 AM EST 09/11/2024 5:27 PM EST [facility] - 09/12/2024 2:40 PM EST Vaginal Feli Neri CNM LAB MICROBIOLOGY - GENERA L ORDERABLES Final Result [facility] [address] [place] [phone] * ECG 12 lead (09/03/2024 5:09 PM EST) [facility] - 09/03/2024 5:09 PM EST NSR. See scanned report [facility] ECG ORDERABLES Final Result * Urinalysis Complete (09/03/2024 11:50 AM EST) Color Urine Yellow [facility] Appearance Urine Clear [facility] PH 6.5 5.0 - 9.0 [facility] Glucose Urine UA Negative Negative mg/dL [facility] Urine Blood Negative Negative [facility] Specific Meldrim - Urine 1.020 1.005 - 1.025 [facility] Urine Protein Negative Neg-Trace mg/dL [facility] Urine Ketones Negative Negative mg/dL [facility] Nitrite Urine Negative Negative [facility] Leukocyte Esterase Urine Negative Negative [facility] RBC Urine 0-2 0 - 2 /HPF [facility] Urine WBC 0-5 0 - 5 /HPF [facility] Urine Squamous Epithelial Cell 6-10 0 - 2 /HPF [facility] Urine Bacteria 1+ None Seen [facility] Hyaline Casts, Urine 0-2 0 - 2 /LPF [facility] Urine (Urine, Random) 09/03/2024 11:50 AM EST 09/03/2024 2:15 PM EST [facility] LAB URINE ORDERABLES Final Re sult Performing Organization Address [facility] Co de Phone Number [facility] [address] [place] [phone] * Syphilis Screen (09/03/2024 11:48 AM EST) Syphilis Screen Nonreactive Nonreactive [facility] Blood 09/03/2024 11:4 8 AM EST 09/03/2024 2:20 PM EST [facility] LAB BLOOD ORDERABLES Final Re sult Performing Organization Address [facility] de Phone Number [facility] [address] [place] [phone] * T-SPOT??.TB (09/03/2024 11:48 AM EST) T Spot TB Negative Negative [facility] Comment:A negative test resu lt does [...] as aquantitative test. TS PANEL A 0 [facility] TS PANEL B 0 [facility] Negative Control Passed [facility] Positive Control Passed [facility] Comment:For additional infor baljit, please refer tohttp://education.Geron/faq/FPN505(This link is being provided for informational/educational purposes only.)THIS TEST WAS PERFORMED AT:[employer] [id number] [place] [address]USKZBSCNOE BREWER MD,PHD 09/03/2024 11:4 8 AM EST 09/03/2024 2:20 PM EST [facility] LAB BLOOD ORDERABLES Final Re sult [facility] [address] [place] [phone] * HIV-1/2 Antigen and Antibodies, Fourth Generation, with Reflexes (09/03/2024 11:48 AM EST) HIV AB/AG Nonreactive Nonreactive [facility] Comment:HIV-1 p24 Ag and/or HIV-1/HIV-2 Ab not detected.A test result that is nonreactive does not exclude thepossibility of exposure to or infection with HIV-1 and/orHIV-2. Nonreactive results in this assay for individualswith prior exposure to HIV-1 and/or HIV-2 may be due toantigen and antibody levels that are below the limit ofdetection of this assay.The [employer] HIV Ag/Ab Combo assay result andsupplemental assay results should be interpreted inconjunction with the patient's clinical presentation,history and other laboratory results. If the results areinconsistent with clinical evidence, additional testing issuggested to confirm the result. Blood Venous blood specimen / Unknown 09/03/2024 11:48 AM EST 09/03/2024 2:20 PM EST [facility] LAB BLOOD ORDERABLES Final Re sult Performing Organization Address [facility]/ZIP Co de Phone Number [facility] [address] [place] [phone] * Lipid Panel, Standard (09/03/2024 11:48 AM EST) Triglycerides 43 <150 mg/dL [facility] Comment:Desirable Triglyceri de: less than 150 mg/dLBorderline High Triglyceride 150-199 mg/dLHigh Triglyceride: 200-499 mg/dLVery High Triglyceride: greater than or equal to 5OO mg/dL Cholesterol 157 <200 mg/dL [facility] Comment:Desirable Cholestero l: less than 200 mg/dLBorderline High Cholesterol: 200-239 mg/dLHigh Cholesterol: greater than 239 mg/dL LDL Cholesterol Calculated 97 <100 mg/dL [facility] Comment:Desirable LDL: less than 100 mg/dLNear Optimal/Above Optimal LDL: 110- 129 mg/dLBorderline High LDL: 130-159 mg/dLHigh LDL: 160-189 mg/dLVery High LDL: greater than or equal to 190 mg/dL HDL Cholesterol 52 >40 mg/dL [facility] Comment:Desirable HDL: great er than 40 mg/dL Note: This HDL assay may give artificially low results in patients with liver disease. Blood Venous blood specimen / Unknown 09/03/2024 11:48 AM EST 09/03/2024 2:20 PM EST [facility] LAB BLOOD ORDERABLES Final Re sult Performing Organization Address City/[facility]/ZIP Co de Phone Number [facility] [address] [place] [phone] [phone] * (ABNORMAL) Comprehensive Metabolic Panel (09/03/2024 11:48 AM EST) Sodium 140 135 - 145 mmol/L [facility] Potassium 3.8 3.3 - 5.1 mmol/L [facility] Chloride 110(H) 96 - 108 mmol/L [facility] Carbon Dioxide 25 22 - 29 mmol/L [facility] Anion Gap 9(L) 12 - 20 [facility] Urea Nitrogen (BUN) 13 9 - 16 mg/dL [facility] Creatinine, Serum 0.89 0.5 - 1.4 mg/dL [facility] Estimated Glomerular Filt Rate >60 [facility] Comment:Chronic Kidney Disea se: Estimated GFR < 60 mL/min/1.65f1Qiezus Kidney Disease: Estimated GFR < 15 mL/min/1.73m2 Glucose 86 60 - 115 mg/dL [facility] Calcium 8.9 8.4 - 10.2 mg/dL [facility] Bilirubin, Total 0.8 0.0 - 1.0 mg/dL [facility] Aspartate Amino Transferase 24 5 - 31 U/L [facility] Alanine Aminotransferase 27 0 - 31 U/L [facility] Total Protein 7.7 6.5 - 8.0 g/dL [facility] Albumin Level 4.5 3.5 - 5.0 g/dL [facility] Alkaline Phosphatase 45 39 - 117 U/L [facility] Blood Venous blood specimen / Unknown 09/03/2024 11:48 AM EST 09/03/2024 2:20 PM EST [facility] LAB BLOOD ORDERABLES Final Re sult Performing Organization Address City/[facility]/ZIP Co de Phone Number [facility] [address] [place] [address] [phone] * Image-Guided Pap with Age-Based Screening??with CT/NG,??Trichomonas (08/30/2022 4:35 PM EST) Comment [facility] Comment: This order for age-based cervical cancer and STI screening follows ACOG guidelines(PB 168, 140, WBG850). See individual assays for performing site location. Clinical Information: ROUTINE SCREEN Nonlinear Dynamicst LMP: NONE GIVEN Nonlinear Dynamicst Prev. PAP: NONE GIVEN Nonlinear Dynamicst Prev. BX: NONE GIVEN Nonlinear Dynamicst SOURCE: None given [facility] Statement Of Adequacy: [facility] Comment: Satisfactory for evaluation. Endocervical/transformation zone component present. Age and/or menstrual status not provided Interpretation/Re sult: Negative for intraepithelial lesion or malignancy. [facility] COMMENT: This Pap test has been evaluated with computer assisted technology. [facility] Lead Quality Technician: [email or web address] Comment: MSM, CT(ASCP) CT screening location: [address] ??[phone] (Always Message) [employer] Comment: EXPLANATORY NOTE: The Pap is a [...] HPV nRNA E6/E7 Not Detected Not Detected [facility] Comment: Methodology: Accordion Tuner-Mediated Amplification This assay detects E6/E7 viral messenger RNA (mRNA) from 14 high-risk HPV types (16,18,31,33,35,39,45,51,52,56,58,59,66,68). Cervical sources are required for HPV testing. If a vaginal source from a patient who has had a total hysterectomy with removal of cervix was submitted, please contact the testing laboratory for alternative testing options. For additional information, please refer to http://education.Geron/faq/IQI249u4 (This link if provided for information/ educational purposes only.) Chlamydia trachomatis RNA, TMA, Urogenital NOT DETECTED NOT DETECTED [employer] Neisseria gonorrhoeae RNA, TMA, Urogenital NOT DETECTED NOT DETECTED [employer] (Always Message) Que st [facility] [employer] Comment: The analytical performance characteristics of this assay, when used to test SurePath(TM) specimens have been determined by [employer]. The modifications have not been cleared or approved by the FDA. This assay has been validated pursuant to the CLIA regulations and is used for clinical purposes. For additional information, please refer to https://[employer].Geron/faq/NPT395 (This link is being provided for information/ educational purposes only.) Trichomonas vaginalis, QL, TMA, PAP Vial NOT DETECTED NOT DETECTED [facility] Comment: The analytical performance characteristics of this assay have been determined by [employer]. The modifications have not been cleared or approved by the FDA. This assay has been validated pursuant to the CLIA regulations and is used for clinical purposes. For additional information, please refer to http://[employer].Geron/ faq/Trichomonastma (This link is being provided for information/ educational purposes only.) 08/30/2022 4:35 PM EST 08/31/2022 8:27 AM EST Narrative [facility] - 09/06/2022 10:36 AM EST FASTING: UNKNOWN [facility] LAB CYTOLOGY ORDERABLES F inal Result [facility] [address] [facility], [place] [phone] [employer] [address] [facility], ([address]) [place] [phone] from Last 3 Months or Most Recently Relevant to Health Maintenance Insurance [facility] C3 Care Teams Silver Solution Mixer Relationship Specialty Start Date End Date Nadine Philip FNP [address] [place] [phone] PCP - General Family Medicine 05/17/22
--- OUTSIDE RECORDS SUMMARY | 2024-10-31 11:58 | XMS_ITS | Encounter Summary ---
Author Organization [employer] Address [address] [facility] [address] [place] [address] Care Team Providers Care Telepathist Name Role Phone Nadine Philip Primary Care Provider [phone] Reason for Visit * Reason Onset Date Comments Nurse Triage 05/12/2024 Encounter Details Date Type Department Care Team (Late st Contact Info) Description 05/12/2024 Telephone [facility] [address] [place] [address] Nadine Philip FNP [address] [place], [place] [phone] Nurse Triage Social History Tobacco Use Types [...] Pt reports poison Rosalva Contact pt at [phone] documented in this encounter Plan of Treatment Upcoming Encounters Date Type Department Care Team (Late st Contact Info) Description 11/17/2024 10:15 AM EDT Office Visit [facility] [address] [place] [address] Nadine Philip FNP [address] [place] [address] documented as of this encounter Visit Diagnoses Not on filedocumented in this encounter Additional Health Concerns Assessment Noted Time PHQ-9 Depression Total Score: 0 02/07/20 3:14 PM EDT documented as of this encounter Care Teams Telepathist Relationship Specialty Start Date End Date Nadine Philip FNP [address] [place] [phone] PCP - General Family Medicine 05/17/22 documented as of this encounter
[2024-10-31 15:27] LABS: TSH reflex Free T4 0.64 uIU/mL (0.32-4.0)
[2024-11-01 06:44] LABS: Prolactin 7.8 ng/mL
== END 2024-10-31 10:32 | disposition home or self-care (01) ==
LOC: HO.CHCLDS 10:31
PROVIDERS: Visit Provider Advanced Practice Midwife
DX: N64.3 Galactorrhea not associated with childbirth (principal)
CPT/HCPCS: 36415; 84146; 84443

== ENCOUNTER 2024-11-17 11:52 | Outpatient (REF) | payer MEDICAID, SELFPAY ==
--- OUTSIDE RECORDS SUMMARY | 2024-11-17 13:39 | XMS_ITS | Clinical Summary ---
Author Organization [employer] Address [address] [facility] 7[address] [place] [address] Care Team Providers Care Manager Risk Name Role Phone Nadine Philip SENIOR POLICY ASSOCIATE Primary Care Provider [phone] Allergies No known active allergies Medications * This document contains information received from the source organization and may not represent a complete record from that organization. acetaminophen (Tylenol) 325 MG tablet Take 650 mg by mouth. 10/07/19 22 Active cholecalciferol (Vitamin D-3) 10 MCG (400 UNIT) tablet Take 2 tablets by oral route every day 05/22/20 22 Active Echinacea 125 MG tablet as needed Active ibuprofen 800 MG tablet Take 800 mg by mouth. 10/07/19 22 Active Multiple Vitamin (Multi-Vitamin) tablet take 1 tablet by oral route every day with food 07/10/20 22 Active Blood Pressure kit Use to check BP daily and when symptomatic 1 kit 01/05/20 23 Active guaiFENesin (Mucinex) 600 MG 12 hr tabletIndicatio ns:Bronchitis Take 1 tablet (600 mg) by mouth 2 times daily. Do not crush, chew, or split. 60 tablet 1 04/25/20 23 Active albuterol 108 (90 Base) MCG/ACT inhalerIndicati ons:Bronchitis Inhale 2 puffs every 6 (six) hours if needed for wheezing. 18 g 1 04/25/20 23 Active amLODIPine (Norvasc) 5 MG tabletIndicatio ns:Essential hypertension Take 1 tablet (5 mg) by mouth Once per day. If tolerating well and BP remains >140/90 INCREASE to 2 tablets (10mg) daily 30 tablet 09/03/19 25 026 Active norethindrone (Ortho Micronor) 0.35 MG tablet Take 1 tablet (0.35 mg) by mouth Once per day. 28 tablet 09/11/19 25 026 Active olmesartan (Benicar) 40 MG tabletIndicatio ns:Primary hypertension Take 1 tablet (40 mg) by mouth Once per day. 90 tablet 11/18/19 25 026 Active olmesartan (BENIcar) 20 MG tablet Take 1 tablet (20 mg) by mouth Once daily. 90 tablet 1 02/07/20 23 025 Discontinued Active Problems Problem Noted Date Diagnosed Date Galactorrhea 09/11/2024 Bilateral bunions 05/22/2023 Overview (05/22/2023): Bilateral bunions noted on exam Assessment & Plan (05/22/2023 6:17 PM EDT): Refer Podiatry Recommend supportive footwear F/u PRN with PCP Poor dentition 05/22/2023 Overview (05/22/2023): Concern for dental infection Assessment & Plan (05/22/2023 6:21 PM EDT): Refer [facility] if you develop fever, worsening [...] stenosis, kidney disease, PITER, primary aldosteronism, pheochromocytoma, [place]'s syndrome, coarctation of aorta, herbal supplements, primary [...] stenosis, kidney disease, PITER, primary aldosteronism, pheochromocytoma, [place]'s syndrome, coarctation of aorta, herbal supplements, primary [...] to leave her home and go to [facility] Assessment & Plan (05/22/2023 6:22 PM EDT): Educated pt that letter requests are managed by Forms Team Will Recommend she go goes to basement, medical records, and request approval of washer and dryer by apartment management F/u with psych provider Elevated liver function tests 08/30/2022 Gestational diabetes 08/30/2022 Paresthesia 05/17/2022 Encounters * This document contains information received from the source organization and may not represent a complete record from that organization. Date Type Department Care Team Description 11/17/2024 10:15 AM EDT Office Visit [facility] [address] [place] [address] Nadine Philip FNP Primary hypertension (Primary Dx) 11/17/2024 Travel 11/13/2024 Telephone [facility] [address] [place] [address] Nadine Philip FNP Chart Prep 11/03/2024 Telephone [facility] [address] [place] [address] Libby Brooks [place] 10/31/2024 Population Health Risk Score [facility] Department [address] [phone] Provider, Population Health Generic 10/29/2024 Telephone [facility] [address] [place] [address] Feli Neri CNM 09/23/2024 Telephone [facility] [address] [place] [address] Kylie Wallace, RN Results 09/23/2024 Telephone [facility] [address] [place] [address] Feli Neri CNM 09/15/2024 Telephone [facility] [address] [place] [address] Libby Brooks [place] 09/11/2024 11:00 AM EST Office Visit [facility] [address] [place] [address] Feli Neri CNM Encounter for IUD removal (Primary Dx); Acute vaginitis; Screening examination for venereal disease; Galactorrhea 09/11/2024 Travel 09/09/2024 Telephone [facility] [address], [place] [phone] Nadine Philip FNP August09/03/2024 10:00 AM EST Office Visit [facility] [address], [place] [phone] [place] FNP Encounter for adult wellness visit (Primary Dx); Essential hypertension; 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); Poor dentition requiring referral to dentistry; Eye exam, routine; Encounter for immunization; Encounter for screening mammogram for breast cancer 09/03/[address] [address] Nadine Philip FNP fyi ; Report BP reading 09/03/2024 Travel from Last 3 Months Immunizations Name Administration [...] Date Recorded Patient Health Questionnaire-9 Score 0 11/17/2024 Patient Health Questionnaire-9 Score 0 11/17/2024 Last PHQ-9: Questionnaire Data Not on file 0 11/17/2024 Housing Stability Answer Date Recorded What is [...] Date Recorded Patient Health Questionnaire-2 Score 0 11/17/2024 Internet Access Answer Date Recorded Internet Access [...] Sign Reading Time Taken Comments Blood Pressure 172/108 11/17/2024 10:11 AM EDT Pulse 77 11/17/2024 10:10 AM EDT Temperature 36.3 ??C (97.3 ??F) 11/17/2024 10:10 AM E DT Respiratory Rate 22 11/17/2024 10:10 AM EDT Oxygen Saturation 100% 11/17/2024 10:10 AM EDT Inhaled Oxygen Concentration - - Weight 66.7 kg (147 lb) 11/17/2024 10:10 AM EDT Height 157.2 cm (5' 1.88 ) 11/17/2024 10:10 AM E DT Body Mass Index 26.99 11/17/2024 10:10 AM EDT Plan of Treatment Upcoming Encounters Date Type Department Care Team ([facility] st Contact Info) Description 01/02/2025 11:00 AM EDT Office Visit [facility] [address] [place] [address] Nadine Philip, SENIOR POLICY ASSOCIATE [address] [place] [address] Health Maintenance Due Date Last Done Comments Hepatitis C Screening 1998 Hepatitis B Vaccines (1 of 3 - 19+ 3-dose series) 1999 Alcohol/Substance Use Screening 09/03/2025 09/03/2024 SDOH Screening 09/03/2025 09/03/2024 Family Planning (PISQ) 09/11/2025 09/11/2024 Mammogram 09/12/2025 09/12/2024 Depression Screening 11/17/2025 11/17/2024, 11/18/19 Tobacco Screening 11/17/2025 11/17/2024 Cervical Cancer Screening 08/30/2027 HPV/Cotest 08/30/2027 08/30/2022 [...] Procedure Name Priority Date/Time Associated Diagnosis Comments PROLACTIN Routine 10/31/2024 10:32 AM EDT Galactorrhea TSH W/REFLEX TO FT4 Routine 10/31/2024 1 0:32 AM EDT Galactorrhea BI MAMMOGRAM SCREENING TOMOSYNTHESIS BILATERAL Routine 09/12/2024 [...] Recently Relevant to Health Maintenance Results * TSH W/Reflex to FT4 (10/31/2024 10:32 AM EDT) TSH reflex Free T4 0.64 0.32 - 4.0 uIU/mL [facility] Blood Venous blood specimen / Unknown 10/31/2024 10:32 AM EDT 10/31/2024 2:[address] [facility] BLOOD ORDERABLES Tiffanie l Result Performing Organization Address City/[facility]/ZIP Co de Phone Number [facility] [address] [place] [phone] * Prolactin (10/31/2024 10:32 AM EDT) Prolactin 7.8 ng/mL [facility] Comment:Reference Range Fema les Non- 3.0-30.0 10.0-209.0 Postmenopausal 2.0-20.0THIS TEST WAS PERFORMED AT:[facility] [place] [phone] BOND MD Blood Venous blood specimen / Unknown 10/31/2024 10:32 AM EDT 10/31/2024 2:44 PM EDT Feli Neri [facility] BLOOD ORDERABLES Tiffanie l Result Performing Organization Address [facility]/ZIP Co de Phone Number [facility] [address] [place] [phone] * BI Mammogram Screening Tomosynthesis Bilateral (09/12/2024 4:25 PM EST) Anatomical Region Laterality Modality Breast Bilateral Mammography 09/12/2024 4:25 PM EST Narrative 09/23/2024 10:40 AM EST ? [facility] ? [address] ?[place] [address] ? Mammography Report ? Signed ? Patient: [place],Mamie ?MR#: [id number] ? : 1980 ?Acct:[id number] ? Age/Sex: 43 / F ?ADM Date: 09/12/ ? Loc: HO.MAMMO ? Attending Dr: Eliana Randell SENIOR POLICY ASSOCIATE ? Ordering Physician: [place],Eliana SENIOR POLICY ASSOCIATE ?Results: 1Nega ?? tive ? Date of Service: 09/12/ ?Follow Up: 1 Year From Orig ?? inal Mammogram ? Procedure(s): MM tomosynthesis screening BI ?? Accession Number(s): [id number] ? cc: Nadine Philip SENIOR POLICY ASSOCIATE; Eliana Mejias SENIOR POLICY ASSOCIATE ? EXAMINATION: ?? MM SCREENING DIGITAL BREAST [...] ??Akilah Ge DO ??09/23/2024 10:37 AM EST ? Dictated By: ?Akilah Ge DO ? Signed By: ?<Electronically signed by Akilah Ge, DO in OV> ? 09/23/24 1037 ? DD/ 1625 ? TD/TT: 09/12/24 1640 ? Senior Javascript Engineer: ? Procedure Note Lyle Russo - 09/23/2024 [facility] [address] [place] [address] Mammography Report Signed Patient: Nelia Agrawal#: [id number] : 1980Acct:[id number] Age/Sex: 43 / FADM Date: 09/12/24 Loc: HO.MAMMO Attending Dr: Eliana Mejias SENIOR POLICY ASSOCIATE Ordering Physician: Eliana Mejias FNPResults: 1Nega tive Date of Service: 09/12/24Follow Up: 1 Year From Orig inal Mammogram Procedure(s): MM tomosynthesis screening BI Accession Number(s): [id number] cc: Nadine Philip SENIOR POLICY ASSOCIATE; Eliana Mejias SENIOR POLICY ASSOCIATE EXAMINATION: MM SCREENING DIGITAL BREAST TOMOSYNTHESIS, BILATERAL [...] 09/23/24 1037 DD/ 1625 TD/TT: 09/12/24 1640 Senior Javascript Engineer: [facility] SENIOR POLICY ASSOCIATE IMG BI PROCEDURES Final Resul t * [...] EST) CT PCR NOT DETECTED Not Detect. [facility] Comment:A not detected test result does [...] psychologicalconsequences. NG PCR NOT DETECTED Not Detect. [facility] Comment:A not detected test result does [...] AM EST 09/11/2024 5:27 PM EST Narrative [facility] - 09/12/2024 2:40 PM EST Vaginal Feli Neri CNM LAB MICROBIOLOGY - GENERA L ORDERABLES Final Result [facility] [address] [place] [phone] * ECG 12 lead (09/03/2024 5:09 PM EST) Mirta GreenvilleEliana langston SENIOR POLICY ASSOCIATE - 09/03/2024 5:09 PM EST NSR. See scanned report [facility] ECG ORDERABLES Final Result * Urinalysis Complete (09/03/2024 11:50 AM EST) Color Urine Yellow [facility] Appearance Urine Clear [facility] PH 6.5 5.0 - 9.0 [facility] Glucose Urine UA Negative Negative mg/dL [facility] Urine Blood Negative Negative [facility] Specific [place] [address] - Urine 1.020 1.005 - 1.025 [facility] Urine Protein Negative Neg-Trace mg/dL [facility] Urine Ketones Negative Negative mg/dL [facility] Nitrite Urine Negative Negative [facility] Leukocyte Esterase Urine Negative Negative [facility] RBC Urine 0-2 0 - 2 /HPF [facility] Urine WBC 0-5 0 - 5 /HPF [facility] Urine Squamous Epithelial Cell 6-10 0 - 2 /HPF [facility] Urine Bacteria 1+ None Seen [facility] Hyaline Casts, Urine 0-2 0 - 2 /LPF [facility] Urine (Urine, Random) 09/03/2024 11:50 AM EST 09/03/2024 2:15 PM EST [facility] LAB URINE ORDERABLES Final Re sult Performing Organization Address [facility] de Phone Number [facility] [address] [place] [phone] * Syphilis Screen (09/03/2024 11:48 AM EST) Syphilis Screen Nonreactive Nonreactive [facility] Blood 09/03/2024 11:4 8 AM EST 09/03/2024 2:20 PM EST [facility] LAB BLOOD ORDERABLES Final Re sult Performing Organization Address [facility] Co de Phone Number [facility] [address] [place] [phone] * T-SPOT??.TB (09/03/2024 11:48 AM EST) T Spot TB Negative Negative [facility] Comment:A negative test resu lt [...] as aquantitative test. TS PANEL A 0 [facility] TS PANEL B 0 [facility] Negative Control Passed [facility] Positive Control Passed [facility] Comment:For additional infor mation, please refer tohttp://education.Diversity Marketplace.Collectric/faq/WLT429(This link is being provided for informational/educational purposes only.)THIS TEST WAS PERFORMED AT:[employer] [id number] [place] [phone] W. MASON,MD,PHD 09/03/2024 11:4 8 AM EST 09/03/2024 2:20 PM EST [facility] SENIOR POLICY ASSOCIATE LAB BLOOD ORDERABLES Final Re sult [facility] [address] [place] [phone] [phone] * HIV-1/2 Antigen and Antibodies, Fourth Generation, with Reflexes (09/03/2024 11:48 AM EST) Pathologist [facility] HIV AB/AG Nonreactive Nonreactive [facility] Comment:HIV-1 p24 Ag and/or HIV-1/HIV-2 Ab not detected.A test result that is nonreactive does not exclude thepossibility of exposure to or infection with HIV-1 and/orHIV-2. Nonreactive results in this assay for individualswith prior exposure to HIV-1 and/or HIV-2 may be due toantigen and antibody levels that are below the limit ofdetection of this assay.The [employer] HIV Ag/Ab Combo assay result andsupplemental assay results should be interpreted inconjunction with the patient's clinical presentation,history and other laboratory results. If the results areinconsistent with clinical evidence, additional testing issuggested to confirm the result. Blood Venous blood specimen / Unknown 09/03/2024 11:48 AM EST 09/03/2024 2:20 PM EST [facility] LAB BLOOD ORDERABLES Final Re sult [facility] [address] [place] [phone] * Lipid Panel, Standard (09/03/2024 11:48 AM EST) Triglycerides 43 <150 mg/dL [facility] Comment:Desirable Triglyceri de: less than 150 mg/dLBorderline High Triglyceride 150-199 mg/dLHigh Triglyceride: 200-499 mg/dLVery High Triglyceride: greater than or equal to 5OO mg/dL Cholesterol 157 <200 mg/dL [facility] Comment:Desirable Cholestero l: less than 200 mg/dLBorderline High Cholesterol: 200-239 mg/dLHigh Cholesterol: greater than 239 mg/dL LDL Cholesterol Calculated 97 <100 mg/dL [facility] Comment:Desirable LDL: less than 100 mg/dLNear Optimal/Above Optimal LDL: 110- 129 mg/dLBorderline High LDL: 130-159 mg/dLHigh LDL: 160-189 mg/dLVery High LDL: greater than or equal to 190 mg/dL HDL Cholesterol 52 >40 mg/dL [facility] Comment:Desirable HDL: great er than 40 mg/dL Note: This HDL assay may give artificially low results in patients with liver disease. Blood Venous blood specimen / Unknown 09/03/2024 11:48 AM EST 09/03/2024 2:20 PM EST [facility] LAB BLOOD ORDERABLES Final Re sult [facility] [address] [place] [address] [phone] * (ABNORMAL) Comprehensive Metabolic Panel (09/03/2024 11:48 AM EST) Sodium 140 135 - 145 mmol/L [facility] Potassium 3.8 3.3 - 5.1 mmol/L [facility] Chloride 110(H) 96 - 108 mmol/L [facility] Carbon Dioxide 25 22 - 29 mmol/L [facility] Anion Gap 9(L) 12 - 20 [facility] Urea Nitrogen (BUN) 13 9 - 16 mg/dL [facility] Creatinine, Serum 0.89 0.5 - 1.4 mg/dL [facility] Estimated Glomerular Filt Rate >60 [facility] Comment:Chronic Kidney Disea se: Estimated GFR < 60 mL/min/1.95o9Ptnkna Kidney Disease: Estimated GFR < 15 mL/min/1.73m2 Glucose 86 60 - 115 mg/dL [facility] Calcium 8.9 8.4 - 10.2 mg/dL [facility] Bilirubin, Total 0.8 0.0 - 1.0 mg/dL [facility] Aspartate Amino Transferase 24 5 - 31 U/L [facility] Alanine Aminotransferase 27 0 - 31 U/L [facility] Total Protein 7.7 6.5 - 8.0 g/dL [facility] Albumin Level 4.5 3.5 - 5.0 g/dL [facility] Alkaline Phosphatase 45 39 - 117 U/L [facility] Blood Venous blood specimen / Unknown 09/03/2024 11:48 AM EST 09/03/2024 2:20 PM EST [facility] SENIOR POLICY ASSOCIATE LAB BLOOD ORDERABLES Final Re sult [facility] [address] [place] [phone] * Image-Guided Pap with Age-Based Screening??with CT/NG,??Trichomonas (08/30/2022 4:35 PM EST) Comment [facility] Comment: This order for age-based cervical cancer and STI screening follows ACOG guidelines(PB 168, 140, OVK905). See individual assays for performing site location. Clinical Information: ROUTINE SCREEN [employer] LMP: NONE GIVEN [facility] Prev. PAP: NONE GIVEN [employer] Prev. BX: NONE GIVEN [employer] SOURCE: None given [employer] Statement Of Adequacy: [facility] Comment: Satisfactory for evaluation. Endocervical/transformation zone component present. Age and/or menstrual status not provided Interpretation/Re sult: Negative for intraepithelial lesion or malignancy. [employer] COMMENT: This Pap test has been evaluated with computer assisted technology. [employer] Overhead Distribution Engineer: [facility] [employer] The[employer]st Comment: MSM, CT(ASCP) CT screening location: [address] ??[phone] (Always Message) Que Simbionixt Comment: EXPLANATORY NOTE: The Pap is a [...] HPV nRNA E6/E7 Not Detected Not Detected [facility] Comment: Methodology: Continuous Improvement Consultant-Mediated Amplification This assay detects E6/E7 viral messenger RNA (mRNA) from 14 high-risk HPV types (16,18,31,33,35,39,45,51,52,56,58,59,66,68). Cervical sources are required for HPV testing. If a vaginal source from a patient who has had a total hysterectomy with removal of cervix was submitted, please contact the testing laboratory for alternative testing options. For additional information, please refer to http://Dipity.IQzone/faq/TNL028g1 (This link if provided for information/ educational purposes only.) Chlamydia trachomatis RNA, TMA, Urogenital NOT DETECTED NOT DETECTED [facility] Neisseria gonorrhoeae RNA, TMA, Urogenital NOT DETECTED NOT DETECTED [facility] (Always Message) Que st [facility] check24 Comment: The analytical performance characteristics of this assay, when used to test SurePath(TM) specimens have been determined by [facility]. The modifications have not been cleared or approved by the FDA. This assay has been validated pursuant to the CLIA regulations and is used for clinical purposes. For additional information, please refer to https://Dipity.IQzone/faq/NFS236 (This link is being provided for information/ educational purposes only.) Trichomonas vaginalis, QL, TMA, PAP Vial NOT DETECTED NOT DETECTED [facility] Comment: The analytical performance characteristics of this assay have been determined by [facility]. The modifications have not been cleared or approved by the FDA. This assay has been validated pursuant to the CLIA regulations and is used for clinical purposes. For additional information, please refer to http://metraTec/ faq/Trichomonastma (This link is being provided for information/ educational purposes only.) 08/30/2022 4:35 PM EST 08/31/2022 8:27 AM EST Narrative [facility] - 09/06/2022 10:36 AM EST FASTING: UNKNOWN Feli Neri CNM LAB CYTOLOGY ORDERABLES F inal Result [facility] [address] [facility], [place] [address] [facility], ([address]) [place] [address] from Last 3 Months or Most Recently Relevant to Health Maintenance Insurance [facility] C3 Care Teams Manager Risk Relationship Specialty Start Date End Date Nadine Philip FNP [address] [place] [phone] PCP - General Family Medicine 05/17/22
--- OUTSIDE RECORDS SUMMARY | 2024-11-17 13:39 | XMS_ITS | Encounter Summary ---
Author Organization [employer] Address [address] [facility] [address] [place] [address] Care Team Providers Care Supervisor Drapery Hanging Name Role Phone Nadine Philip CONDOMINIUM MANAGER Primary Care Provider [phone] Encounter Details Date Type Department Care Team (Latest Contact Info) Description 11/17/2024 Travel Social History Tobacco Use Types Packs/Day [...] your housing situation today? I have allyson deborah 09/03/[address] you li [...] Care Team (Late st Contact Info) Description 01/02/2025 11:00 AM EDT Office Visit [facility] [address] [place] [address] Nadine Philip FNP [address] [place] [address] documented as of this encounter Visit Diagnoses Not on filedocumented in this encounter Additional Health Concerns Assessment Noted Time PHQ-9 Depression Total Score: 0 11/18/19 25 11:58 AM EDT documented as of this encounter Care Teams Supervisor Drapery Hanging Relationship Specialty Start Date End Date Nadine Philip FNP [address] [place] [address] PCP - General Family Medicine 05/17/22 documented as of this encounter
--- OUTSIDE RECORDS SUMMARY | 2024-11-17 13:39 | XMS_ITS | Encounter Summary ---
Author Organization [employer] Address [address] [facility] [address] [place] [address] Care Team Providers Care Pricing Strategist Name Role Phone Nadine Philip Primary Care Provider [phone] Reason for Referral * Consultation (Routine) - Pending Review Specialty Diagnoses / Procedures Referred By Contsarabjit villarreal Referred To Contact Nephrology Diagnoses Primary hypertension Nadine Philip FNP [address] [place] [address] Phone: tel: fax: Aristides Rojas MD [address] [facility] [address] [place] [address] Phone: tel: fax: Referral ID Status Reason Start Date Expiration Date Visits Requested Visits Authorized [id number] Pending Review Specialty Services Required 11/17/2024 11/17/2025 1 1 Encounter Details Date Type Department Care Team ([facility] st Contact Info) Description 11/17/2024 10:15 AM EDT Office Visit [facility] MED [facility] PEDS [address] [place], [place] [phone] Nadine Philip FNP [address] [place], [place] [phone] Primary hypertension (Primary Dx) Social History Tobacco Use Types Packs/Day Years [...] Mass Index 26.99 11/17/2024 10:10 AM EDT documented in this encounter Plan of Treatment Upcoming Encounters Date Type Department Care Team (Late st Contact Info) Description 01/02/2025 11:00 AM EDT Office Visit [facility] MED [facility] PEDS [address] [place] [address] Nadine Philip FNP [address] [place] [address] Scheduled Orders Name Type Priority Associated Diagnoses Orde r Schedule Basic Metabolic Panel Lab Routine Primary hypertension Expected: 11/17/2024 (Approximate), Expires: 11/17/2025 Scheduled Referrals Name Type Priority Associated Diagnoses Orde r Schedule Referral to Nephrology Outpatient Referral Routine Primary hypertension Expected: 11/17/2024 (Approximate), Expires: 11/17/2025 documented as of this encounter Visit Diagnoses Diagnosis Primary hypertension- Primary Unspecified essential hypertension documented in this encounter Additional Health Concerns Assessment Noted Time PHQ-9 Depression Total Score: 0 11/18/19 25 11:58 AM EDT documented as of this encounter Care Teams Pricing Strategist Relationship Specialty Start Date End Date Nadine Philip FNP [address] [place] [address] PCP - General Family Medicine 05/17/22 documented as of this encounter
--- OUTSIDE RECORDS SUMMARY | 2024-11-17 13:39 | XMS_ITS | Clinical Summary ---
Author Organization [facility] Address [address] [place] [address] Care Team Providers Care Field Crop Farming Supervisor Name Role Phone Miguel Jeffers Primary Care Provider [phone] Source Comments PLEASE NOTE, if this patient [...] Health Maintenance Due Date Last Done Comments Anxiety Screening 1980 HPV Screening 1980 Hepatitis C Screening 1980 Lipid Screening 1980 Pap + HPV 1980 Tobacco Screening 1980 HIV Screening 1995 Relationship Safety Screening/Counseling 1995 Imm-DTaP/Tdap/Td (1 - Tdap) 1999 Imm-Hepatitis B (1 of 3 - 19+ 3-dose series) 0 Cervical Cancer Screening 2001 Pap Smear 2001 Hypertension Screening (#1) 12/09/2017 Breast Cancer Screening (Mammogram) 2020 Ath-RTOJD-75 () 04/20/2024 Imm-Influenza (#1) 2024 Alcohol and Drug Screen 08/20/2024 Depression Annual Screen 08/20/2024 Diabetes Screening 03/19/2026 03/19/2023 Cervical Ablation/Cold-Knife Conization Discontinued Cervical Cryotherapy Discontinued Colposcopy Discontinued Endometrial Biopsy Discontinued Excision/Leep Discontinued HPV Genotyping Discontinued Vaginal Pap Discontinued Vulvoscopy Discontinued Insurance [facility] [place] [address] [place] Care Teams Field Crop Farming Supervisor Relationship Specialty Start Date End Date Miguel Jeffers PA [address] [place] [address] PCP - General Internal Medicine 12/18/16
--- OUTSIDE RECORDS SUMMARY | 2024-11-17 13:39 | XMS_ITS | Encounter Summary ---
Author Organization [employer] Address [address] [facility] [address] [place] [address] Care Team Providers Care Dinkey Skinner Name Role Phone Nadine Philip Primary Care Provider [phone] Encounter Details Date Type Department Care Team ([facility] st Contact Info) Description 12/07/2023 Telephone C [facility]S [address] [place], [place] [phone] Nadine Philip FNP [address] [place], [place] [phone] Social History Tobacco Use Types Packs/Day Years [...] Upcoming Encounters Date Type Department Care Team ([facility] st Contact Info) Description 01/02/2025 11:00 AM EDT Office Visit [facility] MED & PEDS [address] [place] [address] Nadine Philip FNP [address] [place] [address] documented as of this encounter Visit Diagnoses Not on filedocumented in this encounter Additional Health Concerns Assessment Noted Time PHQ-9 Depression Total Score: 0 02/07/20 23 3:14 PM EDT documented as of this encounter Care Teams Dinkey Skinner Relationship Specialty Start Date End Date Nadine Philip FNP [address] [place] [address] PCP - General Family Medicine 05/17/22 documented as of this encounter
--- OUTSIDE RECORDS SUMMARY | 2024-11-17 13:39 | XMS_ITS | Encounter Summary ---
Author Organization [employer] Address [address] [facility] [address] [place] [address] Care Team Providers Care Roofing Foreman Name Role Phone Nadine Philip Primary Care Provider [phone] Reason for Visit * Reason Onset Date Comments Chart Prep 11/13/2024 Encounter Details Date Type Department Care Team ([facility] Contact Info) Description 11/13/2024 Telephone C [facility]EDS [address] [place], [place] [phone] Nadine Philip FNP [address] [place] [address] Chart Prep Social History Tobacco Use Types Packs/Day Years [...] Telephone Encounter - Marc Seaman [place] - 11/13/2024 2:30 PM EDT Chart Prep Labs: done Images: done Vaccines due: yes Referrals: complete Screenings: Hep C Overdue care gaps: n/a documented in this encounter Plan of Treatment Upcoming Encounters Date Type Department Care Team (Late st Contact Info) Description 01/02/2025 11:00 AM EDT Office Visit [facility] MED & PEDS [address] [place] [address] Nadine Philip FNP [address] [place] [address] documented as of this encounter Visit Diagnoses Not on filedocumented in this encounter Additional Health Concerns Assessment Noted Time PHQ-9 Depression Total Score: 0 09/03/19 25 11:30 AM EST documented as of this encounter Care Teams Roofing Foreman Relationship Specialty Start Date End Date Nadine Philip FNP [address] [place] [address] PCP - General Family Medicine 05/17/22 documented as of this encounter
--- OUTSIDE RECORDS SUMMARY | 2024-11-17 13:40 | XMS_ITS | Encounter Summary ---
Author Organization [employer] Address [address] [facility] [address] [place] [address] Care Team Providers Care Spout Worker Name Role Phone Nadine Philip Primary Care Provider [phone] Reason for Visit * Reason Onset Date Comments Nurse Triage 05/12/2024 Encounter Details Date Type Department Care Team ([facility] st Contact Info) Description 05/12/2024 Telephone [facility] MEDICINE [address] [place] [address] Nadine Philip FNP [address] [place] [address] Nurse Triage Social History Tobacco Use Types [...] Pt reports poison [place] Contact pt at [phone] documented in this encounter Plan of Treatment Upcoming Encounters Date Type Department Care Team ([facility] st Contact Info) Description 01/02/2025 11:00 AM EDT Office Visit [facility] MED & PEDS [address] [place] [address] Nadine Philip FNP [address] [place] [address] documented as of this encounter Visit Diagnoses Not on filedocumented in this encounter Additional Health Concerns Assessment Noted Time PHQ-9 Depression Total Score: 0 02/07/20 3:14 PM EDT documented as of this encounter Care Teams Spout Worker Relationship Specialty Start Date End Date Nadine Philip FNP [address] [place] [address] PCP - General Family Medicine 05/17/22 documented as of this encounter
[2024-11-17 17:26] LABS: Anion Gap 10 (12-20); Blood Urea Nitrogen 15 mg/dL (9-16); Carbon Dioxide 24 mmol/L (22-29); Chloride 109 mmol/L (96-108); Estimated Glomerular Filt Rate > 60; Glucose Random 92 mg/dL (60-115); Potassium 4.3 mmol/L (3.3-5.1); Sodium 139 mmol/L (135-145)
[2024-11-22 15:07] LABS: Aldosterone/Renin Ratio 47.1 Ratio (0.9-28.9); Plasma Renin Activity 0.17 ng/mL/h (0.25-5.82)
== END 2024-11-17 11:53 | disposition home or self-care (01) ==
LOC: HO.CHCLDS 11:52
PROVIDERS: Registered Nurse; Visit Provider Registered Nurse
DX: I10 Essential (primary) hypertension (principal)
CPT/HCPCS: 36415; 80048; 82088